=== PATIENT | female | born 1975 | race Caucasian/White ===

== ENCOUNTER 2017-10-16 11:22 | Inpatient (IN) | payer MEDICARE, OTHER ==
[~2017-10-16] VITALS: Ht 165.1 cm; Wt 155.6 kg
--- NOTE | 2017-10-16 11:42 | NUR ---
PT TO ER BED 12. SENT BY PMD FOR A RLE WOUND EVAL. PT STATES NON HEALING WOUND FOR 7 YEARS. GOWNED AND PLACED ON MONITOR. AWAITING MD LAYNE.
[2017-10-16] MEDS ORDERED: PIPERACILLIN /TAZOBACTAM 3.375 G in IV D5W 50 ML IV ONE (12:00)
[2017-10-16] MEDS ORDERED: VANCOMYCIN 1 GM in IV D5W 250 ML IV ONE (12:00)
[2017-10-16 12:13] LABS: BASOPHILS # (AUTO) 0.1 /CMM (0.0-0.2); BASOPHILS % (AUTO) 2.1 % (0.0-2.0); EOSINOPHILS % (AUTO) 3.5 % (0.0-6.0); HEMATOCRIT 36 % (33-45); HEMOGLOBIN 12.5 g/dL (11.5-14.8); LYMPHOCYTES # (AUTO) 1.2 /CMM (0.8-4.8); LYMPHOCYTES % (AUTO) 21.7 % (20.0-44.0); MEAN CORPUSCULAR HEMOGLOBIN 32 PG (26.0-33.0); MEAN CORPUSCULAR HGB CONC 35 g/dl (31.0-36.0); MEAN CORPUSCULAR VOLUME 92 fL (82-100); MONOCYTES # (AUTO) 0.5 /CMM (0.1-1.30); MONOCYTES % (AUTO) 8.6 % (2.0-12.0); NEUTROPHILS # (AUTO) 3.5 /CMM (1.8-8.9); NEUTROPHILS % (AUTO) 64.1 % (43.0-81.0); PLATELET COUNT (AUTO) 135 /CMM (150-450); RDW COEFFICIENT OF VARIATION 14.8 (11.5-15.0); RED BLOOD CELL COUNT(AUTO) 3.93 MIL/uL (4.0-5.2); WHITE BLOOD COUNT (AUTO) 5.5 K/uL (4.3-11.0)
[2017-10-16 12:23] LABS: CALCIUM, SERUM 8.6 mg/dL (8.5-10.1); CARBON DIOXIDE 29 mmol/L (21-32); CHLORIDE 107 mmol/L (98-107); CREATININE 0.8 mg/dL (0.6-1.3); GLUCOSE 82 mg/dL (74-106); POTASSIUM 3.6 mmol/L (3.5-5.1); SODIUM SERUM 139 mmol/L (136-145); UREA NITROGEN, BLOOD 14 mg/dL (7-18)
[2017-10-16 12:28] LABS: ALANINE AMINOTRANSFERASE 30 U/L (12-78); ALKALINE PHOSPHATASE 96 U/L (46-116); ASPARTATE AMINOTRANSFERASE 32 U/L (15-37); BILIRUBIN,DIRECT 0.2 mg/dL (0.0-0.2); BILIRUBIN,TOTAL 0.7 mg/dL (0.2-1.0); TOTAL PROTEIN, SERUM 7.5 g/dL (6.4-8.2)
[2017-10-16 12:29] LABS: INR 0.97 (0.85-1.15)
[2017-10-16 12:31] LABS: TROPONIN I < 0.017 ng/mL (0.00-0.056)
[2017-10-16] MEDS ORDERED: VANCOMYCIN 2 GM in IV D5W 500 ML IV ONE (13:00)
--- NOTE | 2017-10-16 13:00 | NUR ---
REPORT GIVEN TO TERRY. PT AWAITING TRANSFER TO FLOOR.
[2017-10-16 14:00] VITALS: BP 124/79
--- NOTE | 2017-10-16 14:20 | NUR ---
MS RN OPENING NOTES RECEIVED PATIENT IN STALE CONDITION. IN NO APPARENT DISTRESS. BEDSIDE RAILS ARE UPX2. BED IS LOCKED AND LOWERED. CALL LIGHT IS WITHIN REACH. IV LINE IS INTACT AND PATENT. WILL CONTINUE TO MONITOR.
[2017-10-16] MEDS ORDERED: Z GUARD REMEDY 2 OZ OINT TP PRN (14:30)
[2017-10-16] MEDS ORDERED: ZOLPIDEM TARTRATE 5 MG TABLET PO PRN (14:30)
[2017-10-16] MEDS ORDERED: ACETAMINOPHEN 325 MG TABLET PO PRN (14:30)
[2017-10-16] MEDS ORDERED: ONDANSETRON HCL/PF 4 MG/2 ML VIAL IVP PRN (14:30)
[2017-10-16] MEDS ORDERED: FEE PK DOSING 1 MIN EA MC ONE (14:52)
[2017-10-16] MEDS: HYDROCODONE/APAP 10/325MG 1 EA TABLET PO PRN ×2 (15:37→19:30)
[2017-10-16] MEDS: ENOXAPARIN SODIUM 40 MG/0.4 ML DISP.SYRIN SQ SCH (16:00)
[2017-10-16 16:13] VITALS: BP 149/93
--- NOTE | 2017-10-16 18:42 | NUR ---
MS RN CLOSING NOTES PATIENT IS RESTING IN BED IN NO APPARENT DISTRESS. BEDSIDE RAILS ARE UPX2. BED IS LOCKED AND LOWERED. CALL LIGHT IS WITHIN REACH. IV LINE IS INTACT AND PATENT. ALL NEEDS WERE MET. WILL CONTINUE TO MONITOR.
--- NOTE | 2017-10-16 19:40 | NUR ---
MS RN NOTE RECEIVED PATIENT FROM DAY SHIFT, PATIENT IS ALERT AND ORIENTEDX4, DENIES RESPIRATORY DISTRESS AND COMPLAINS OF RIGHT LOWER LEG PAIN DUE TO WOUND. NORCO 10-325MG PO GIVEN, WILL MONITOR FOR EFFECTIVENESS. IV ON RIGHT HAND 20 AND LEFT AC 20 ARE PATENT AND INTACT, FLUID IS RUNNING. SRX2, BED IN LOW POSITION, CALL LIGHT WITHIN REACH, WILL CONTINUE TO MONITOR PATIENT.
--- NOTE | 2017-10-16 20:30 | NUR ---
MS RN NOTE COUNTRY MANAGER IS DOING ARTERIAL DOPPLER ON BLE AND ECHOCARDIOGRAM AT BEDSIDE.
[2017-10-16 20:35] VITALS: BP 148/80
[2017-10-16] MEDS: VANCOMYCIN 1 GM in IV D5W 250 ML IV SCH (20:54)
[2017-10-17] MEDS: HYDROCODONE/APAP 10/325MG 1 EA TABLET PO PRN ×4 (00:10→19:09)
--- NOTE | 2017-10-17 01:30 | NUR ---
MS RN NOTE PATIENT STILL COMPLAINS OF SEVERE PAIN ON RLE 10 EVEN AFTER NORCO 10-325MG. PAGED ONCLORRI MONTANEZ REYES AND GOT AN ORDER OF MORPHINE 2MG IVP Q4H PRN. ORDERS PUT IN AND WILL CARRY OUT.
[2017-10-17] MEDS: MORPHINE SULFATE INJ 2 MG/ML DISP.SYRIN IV PRN ×4 (02:38→15:06)
--- NOTE | 2017-10-17 02:40 | NUR ---
MS RN NOTE PATIENT COMPLAINS OF PAIN ON LLE, MORPHINE 2MG IVP GIVEN. WILL MONITOR FOR EFFECTIVENESS.
[2017-10-17] MEDS: VANCOMYCIN 1 GM in IV D5W 250 ML IV SCH ×3 (04:55→21:06)
--- NOTE | 2017-10-17 06:35 | NUR ---
MS RN NOTE PATIENT COMPLAINS OF PAIN ON LLE, MORPHINE 2MG IVP GIVEN. WILL MONITOR FOR EFFECTIVENESS.
--- NOTE | 2017-10-17 06:47 | NUR ---
MS RN NOTE PATIENT IS SLEEPING IN BED, NO FACIAL GRIMACE, NO S/S OF RESPIRATORY DISTRESS PRESENT. ALL DUE MEDS GIVEN, MORNING CARE RENDERED. NO ACUTE EVENT NOTED THROUGHOUT THE SHIFT. WILL ENDORSE TO DAY SHIFT NURSE FOR COLLINS.
--- NOTE | 2017-10-17 07:15 | NUR ---
MS RN OPENING NOTE RECEIVED PATIENT IN BED, SLEEPING, EASILY AROUSED WITH VERBAL STIMULI. LETHARGIC, ORIENTED X2. ON ROOM AIR TOLERATING WELL. RESPIRATIONS EVEN AND UNLABORED. IN NO APPARENT DISTRESS OR DISCOMFORT AT THIS TIME. DENIES PAIN. PATIENT WITH DUMONT CATHETER DRAINING CLEAR YELLOW URINE. LEFT UPPER ARM IVC 22G. PATENT AND INTACT. WITH FLUIDS RUNNING AT 75ML/HR. OR TEAM BY THE BEDSIDE TO TAKE THE PATIENT FOR SURGERY. CONSENT SIGNED PLACED IN A CHART. WAS NPO SINCE MIDNIGHT. KEPT CLEAN AND COMFORTABLE, ALL NEEDS ATTENDED. SAFETY MEASURES IN PLACE, BED IN LOW LOCKED POSITION, SIDE RIALS UP X2, CALL LIGHT WITHIN EASY REACH. WILL CONTINUE TO MONITOR.
--- NOTE | 2017-10-17 07:15 | NUR ---
ms rn initial notes Received patient in bed, asleep, head of bed elevated, no SOB or distress noted. On room air and tolerated well. IV intact and patent with IVF. No facial grimace noted. Alert and oriented x 4, verbally responsive and able to make needs known. Call light with in patient reach, will continue to monitor accordingly.
[2017-10-17 08:00] VITALS: BP 137/83
[2017-10-17] MEDS: LORAZEPAM INJ 2 MG/ML VIAL IV PRN ×2 (11:37→18:02)
[2017-10-17 12:33] LABS: BASOPHILS % (AUTO) 0.5 % (0.0-2.0); HEMATOCRIT 37 % (33-45); HEMOGLOBIN 12.4 g/dL (11.5-14.8); LYMPHOCYTES # (AUTO) 1.1 /CMM (0.8-4.8); LYMPHOCYTES % (AUTO) 22.9 % (20.0-44.0); MEAN CORPUSCULAR HEMOGLOBIN 31 PG (26.0-33.0); MEAN CORPUSCULAR HGB CONC 33 g/dl (31.0-36.0); MEAN CORPUSCULAR VOLUME 93 fL (82-100); MONOCYTES # (AUTO) 0.4 /CMM (0.1-1.30); MONOCYTES % (AUTO) 7.4 % (2.0-12.0); NEUTROPHILS # (AUTO) 3.2 /CMM (1.8-8.9); NEUTROPHILS % (AUTO) 66.2 % (43.0-81.0); PLATELET COUNT (AUTO) 144 /CMM (150-450); RDW COEFFICIENT OF VARIATION 15.7 (11.5-15.0); RED BLOOD CELL COUNT(AUTO) 4.01 MIL/uL (4.0-5.2); WHITE BLOOD COUNT (AUTO) 4.8 K/uL (4.3-11.0)
[2017-10-17] MEDS ORDERED: KETOROLAC TROMETHAMINE 10 MG TABLET PO PRN (13:00)
[2017-10-17] MEDS ORDERED: diphenhydrAMINE HCL 50 MG CAPSULE PO PRN (13:00)
[2017-10-17] MEDS: GABAPENTIN 100 MG CAPSULE PO SCH ×2 (13:06→17:03)
[2017-10-17 13:16] LABS: ALBUMIN 3.1 g/dL (3.4-5.0); BILIRUBIN,TOTAL 0.8 mg/dL (0.2-1.0); CALCIUM, SERUM 8.7 mg/dL (8.5-10.1); CREATININE 0.8 mg/dL (0.6-1.3); MAGNESIUM 1.7 mg/dL (1.8-2.4); PHOSPHORUS 4.1 mg/dL (2.5-4.9); POTASSIUM 3.9 mmol/L (3.5-5.1); TOTAL PROTEIN, SERUM 7.7 g/dL (6.4-8.2)
[2017-10-17] MEDS ORDERED: FLUO-120 PO (13:36)
[2017-10-17] MEDS ORDERED: QUET25TA PO (13:36)
[2017-10-17] MEDS ORDERED: NYST500P PO (13:36)
[2017-10-17] MEDS ORDERED: ERGO500014 PO (13:36)
[2017-10-17] MEDS ORDERED: ASCO500T9 PO (13:36)
[2017-10-17] MEDS ORDERED: GABA-534 PO (13:36)
[2017-10-17] MEDS ORDERED: ZOLP10TA6 PO (13:36)
[2017-10-17] MEDS ORDERED: LORA2TAB PO (13:36)
[2017-10-17] MEDS ORDERED: FOLI1TAB16 PO (13:36)
[2017-10-17] MEDS ORDERED: RISP0.253 PO (13:36)
[2017-10-17] MEDS ORDERED: ESCI10TA PO (13:36)
[2017-10-17] MEDS ORDERED: MULT-15 PO (13:36)
[2017-10-17] MEDS ORDERED: ZINC220C8 PO (13:36)
[2017-10-17] MEDS ORDERED: CHOL100044 PO (13:36)
[2017-10-17] MEDS ORDERED: OXYB5TAB11 PO (13:36)
[2017-10-17] MEDS ORDERED: IBUP-1957 PO (13:36)
[2017-10-17] MEDS ORDERED: FERR325T23 PO (13:36)
[2017-10-17 13:40] LABS: THYROID STIMULATING HORMONE 1.59 uIU/mL (0.358-3.74)
[2017-10-17] MEDS: PIPERACILLIN /TAZOBACTAM 3.375 G in IV NS 0.9% 50 ML IV SCH ×2 (15:04→20:31)
--- NOTE | 2017-10-17 16:49 | NUR ---
ms rn notes Gregg Alvares CONFORMAL PAD FORMER came seen and examined the patient and ordered to d/c previous morphine order and increased to 4mg Q4hrs PRN. Patient is on isolation for mRSA nares. Mupirocin ordered. All orders carried out and noted.
[2017-10-17] MEDS: MORPHINE SULFATE INJ 4 MG/ML DISP.SYRIN IV PRN ×2 (17:03→22:14)
[2017-10-17] MEDS: LIDOCAINE 5% OINT 35.44 GM TUBE TP SCH (17:03)
[2017-10-17] MEDS: FLUOCINONIDE 0.05% CREAM 15 GM TUBE TP SCH (17:12)
[2017-10-17] MEDS: OXYBUTYNIN CHLORIDE ER 5 MG TAB PO SCH (17:38)
[2017-10-17] MEDS ORDERED: MAGNESIUM OXIDE 400 MG TABLET PO ONE (19:00)
--- NOTE | 2017-10-17 19:18 | NUR ---
ms rn closing notes All needs provided, attended, and anticipated. Patient is in stable condition. Endorsed to next shift RN to continue care. Call light with in patient reach.
[2017-10-17 20:00] VITALS: BP 163/97
--- NOTE | 2017-10-17 20:06 | NUR ---
MS RN NOTE RECEIVED PATIENT FROM DAY SHIFT, PATIENT IS ALERT AND ORIENTEDX4, DENIES RESPIRATORY DISTRESS AND COMPLAINS OF RIGHT LOWER LEG PAIN DUE TO WOUND. IV ON RIGHT HAND 20 PATENT AND INTACT, FLUID IS RUNNING. SRX2, BED IN LOW POSITION, CALL LIGHT WITHIN REACH, WILL CONTINUE TO MONITOR PATIENT.
[2017-10-17] MEDS: ENOXAPARIN SODIUM 40 MG/0.4 ML DISP.SYRIN SQ SCH (21:06)
[2017-10-17] MEDS: HYDROGEL DRESSING 90 GM TUBE TP SCH (21:08)
[2017-10-17] MEDS: MUPIROCIN OINT 2% 22 GM TUBE SCH (21:09)
--- NOTE | 2017-10-17 22:22 | NUR ---
MS RN NOTE PATIENT COMPLAINS OF SEVERE PAIN ON HER BLE 12/07, MORPHINE 4MG IVP GIVEN. WILL MONITOR EFFECTIVENESS.
[2017-10-18] MEDS: LORAZEPAM INJ 2 MG/ML VIAL IV PRN ×4 (00:03→19:52)
[2017-10-18] MEDS: HYDROCODONE/APAP 10/325MG 1 EA TABLET PO PRN ×5 (02:07→23:18)
[2017-10-18] MEDS: PIPERACILLIN /TAZOBACTAM 3.375 G in IV NS 0.9% 50 ML IV SCH ×4 (02:07→19:52)
[2017-10-18] MEDS: MORPHINE SULFATE INJ 4 MG/ML DISP.SYRIN IV PRN ×5 (03:57→21:28)
[2017-10-18] MEDS: VANCOMYCIN 1 GM in IV D5W 250 ML IV SCH ×3 (04:58→21:08)
--- NOTE | 2017-10-18 07:20 | NUR ---
ms rn initial notes Received patient in bed, asleep, head of bed elevated, no SOB or distress noted, on room air and tolerated well. Alert and oriented x 3 verbally responsive and able to make needs known. Iv intact and patent HL only. Call light with in patient reach, will continue to monitor accordingly.
[2017-10-18 08:00] VITALS: BP 150/96
[2017-10-18] MEDS: OXYBUTYNIN CHLORIDE ER 5 MG TAB PO SCH (08:09)
[2017-10-18] MEDS: ASCORBIC ACID 500 MG TABLET PO SCH (08:09)
[2017-10-18] MEDS: ZINC SULFATE 220 MG CAPSULE PO SCH (08:09)
[2017-10-18] MEDS: HYDROGEL DRESSING 90 GM TUBE TP SCH ×2 (08:10→21:09)
[2017-10-18] MEDS: GABAPENTIN 100 MG CAPSULE PO SCH ×3 (08:10→17:20)
[2017-10-18] MEDS: FLUCONAZOLE (100 MG) 100 MG TABLET PO SCH (08:10)
[2017-10-18] MEDS: LIDOCAINE 5% OINT 35.44 GM TUBE TP SCH ×2 (08:11→17:21)
[2017-10-18] MEDS: DAKINS QUARTER STRENGTH (0.125%) 480 ML BOTTLE TOP SCH (08:11)
[2017-10-18] MEDS: MUPIROCIN OINT 2% 22 GM TUBE SCH ×2 (08:11→21:09)
[2017-10-18] MEDS: FLUOCINONIDE 0.05% CREAM 15 GM TUBE TP SCH ×2 (08:12→17:21)
[2017-10-18 09:22] LABS: CALCIUM, SERUM 8.7 mg/dL (8.5-10.1); CREATININE 0.8 mg/dL (0.6-1.3)
[2017-10-18 16:00] VITALS: BP 147/84
[2017-10-18] MEDS: LACTOBACILLUS RHAMNOSUS GG 1 EACH CAP.SPRINK PO SCH (17:20)
--- NOTE | 2017-10-18 19:06 | NUR ---
ms rn closing notes All needs provided, attended, and anticipated. Patient in stable condition at this time. Endorsed to next shift RN to continue care. Call light with in reach.
--- NOTE | 2017-10-18 19:30 | NUR ---
MS RN NOTE RECEIVED PATIENT FROM DAY SHIFT, PATIENT IS ALERT AND ORIENTEDX4, DENIES RESPIRATORY DISTRESS AND COMPLAINS OF RIGHT LOWER LEG PAIN DUE TO WOUND. IV ON LEFT FA IS PATENT AND INTACT, FLUID IS RUNNING. SRX2, BED IN LOW POSITION, CALL LIGHT WITHIN REACH, WILL CONTINUE TO MONITOR PATIENT.
[2017-10-18 20:00] VITALS: BP 140/94
[2017-10-18] MEDS: ENOXAPARIN SODIUM 40 MG/0.4 ML DISP.SYRIN SQ SCH (21:09)
[2017-10-19] MEDS: MORPHINE SULFATE INJ 4 MG/ML DISP.SYRIN IV PRN ×6 (01:24→22:56)
[2017-10-19] MEDS: PIPERACILLIN /TAZOBACTAM 3.375 G in IV NS 0.9% 50 ML IV SCH ×4 (01:59→20:12)
[2017-10-19] MEDS: LORAZEPAM INJ 2 MG/ML VIAL IV PRN ×4 (02:09→20:39)
[2017-10-19] MEDS: HYDROCODONE/APAP 10/325MG 1 EA TABLET PO PRN ×5 (03:26→21:07)
--- NOTE | 2017-10-19 04:45 | NUR ---
MS RN NOTE PATIENT REFUSED TO TAKE PICTURES ON HER LEG SINCE IT HURTS AND DRESSING WAS CHANGED YESTERDAY, DOESN'T WANT TO TOUCH IT. PT WILL HAVE DEBRIDEMENT IN AM.
[2017-10-19] MEDS: VANCOMYCIN 1 GM in IV D5W 250 ML IV SCH ×3 (04:52→21:02)
--- NOTE | 2017-10-19 06:23 | NUR ---
MS RN NOTE PATIENT IS RESTING IN BED COMFORTABLY, NO ACUTE EVENT NOTED THROUGHOUT THE SHIFT. ALL DUE MEDS GIVEN, MORNING CARE RENDERED. IV ON LEFT FA IS PATENT AND INTACT, SL. WILL ENDORSE TO DAY SHIFT NURSE FOR COLLINS.
[2017-10-19 07:58] LABS: BASOPHILS # (AUTO) 0.1 /CMM (0.0-0.2); BASOPHILS % (AUTO) 1.1 % (0.0-2.0); EOSINOPHILS % (AUTO) 3.1 % (0.0-6.0); HEMATOCRIT 38 % (33-45); HEMOGLOBIN 12.9 g/dL (11.5-14.8); LYMPHOCYTES # (AUTO) 1.3 /CMM (0.8-4.8); LYMPHOCYTES % (AUTO) 27.2 % (20.0-44.0); MEAN CORPUSCULAR HEMOGLOBIN 32 PG (26.0-33.0); MEAN CORPUSCULAR HGB CONC 34 g/dl (31.0-36.0); MEAN CORPUSCULAR VOLUME 94 fL (82-100); MONOCYTES # (AUTO) 0.5 /CMM (0.1-1.30); MONOCYTES % (AUTO) 10.9 % (2.0-12.0); NEUTROPHILS # (AUTO) 2.8 /CMM (1.8-8.9); NEUTROPHILS % (AUTO) 57.7 % (43.0-81.0); PLATELET COUNT (AUTO) 121 /CMM (150-450); RDW COEFFICIENT OF VARIATION 15.7 (11.5-15.0); RED BLOOD CELL COUNT(AUTO) 4.09 MIL/uL (4.0-5.2); WHITE BLOOD COUNT (AUTO) 4.8 K/uL (4.3-11.0)
[2017-10-19] MEDS: MUPIROCIN OINT 2% 22 GM TUBE SCH ×2 (08:10→20:46)
[2017-10-19 08:14] LABS: CALCIUM, SERUM 8.7 mg/dL (8.5-10.1); CREATININE 0.9 mg/dL (0.6-1.3); MAGNESIUM 1.8 mg/dL (1.8-2.4); POTASSIUM 3.8 mmol/L (3.5-5.1)
[2017-10-19] MEDS: OXYBUTYNIN CHLORIDE ER 5 MG TAB PO SCH (08:25)
[2017-10-19] MEDS: LACTOBACILLUS RHAMNOSUS GG 1 EACH CAP.SPRINK PO SCH ×2 (08:25→17:01)
[2017-10-19] MEDS: FLUCONAZOLE (100 MG) 100 MG TABLET PO SCH (08:25)
[2017-10-19] MEDS: GABAPENTIN 100 MG CAPSULE PO SCH ×3 (08:25→17:01)
--- NOTE | 2017-10-19 08:25 | NUR ---
MS RN NOTES PATIENT IN BED, A/O X4 APPEARS ANXIOUS. BREATHING ON ROOM AIR WITH NO SOB. RIGHT LEG WOUND DRESSING INTACT. AWAITING FOR WOUND DEBRIDEMENT PER NIGHT RN REPORT. MAINTAINED CONTACT ISOLATION MRSA NARES. CALL LIGHT WITHIN REACH. WILL CONT TO MONITOR.
[2017-10-19] MEDS: ZINC SULFATE 220 MG CAPSULE PO SCH (08:26)
[2017-10-19] MEDS: ASCORBIC ACID 500 MG TABLET PO SCH (08:26)
[2017-10-19 09:05] VITALS: BP 147/89
[2017-10-19] MEDS: DAKINS QUARTER STRENGTH (0.125%) 480 ML BOTTLE TOP SCH (09:08)
[2017-10-19] MEDS: LIDOCAINE 5% OINT 35.44 GM TUBE TP SCH ×2 (09:10→17:05)
[2017-10-19] MEDS: HYDROGEL DRESSING 90 GM TUBE TP SCH ×2 (09:11→20:47)
[2017-10-19] MEDS: FLUOCINONIDE 0.05% CREAM 15 GM TUBE TP SCH ×2 (09:11→17:05)
[2017-10-19] MEDS: IV NS 0.9% 1,000 ML IV PRN ×2 (16:48→22:56)
[2017-10-19 16:53] VITALS: BP 134/85
[2017-10-19] MEDS: NYSTATIN TOP POWDER 15 GM BOTTLE TP SCH (17:02)
--- NOTE | 2017-10-19 18:50 | NUR ---
MS RN CLOSING NOTES PATIENT IN BED, DINNER SERVED WITH GOOD APPETITE. MAINTAINED ON CONTACT ISOLATION MRSA NARES. WOUND DEBRIDEMENT RIGHT LEG TODAY BY DR. OLIVA, CONT WOUND TREATMENT PER MD. RIGHT LEG PAIN MANAGED BY PRN NORCO AND MORPHINE WITH RELIEF. STARTED ON NYSTATIN POWDER FOR ABDOMINAL, BREAST FOLDS IRRITATION AND REDNESS. DC PLANNING SNF PER MD. WILL ENDORSE TO ONCOMING RN.
--- NOTE | 2017-10-19 19:30 | NUR ---
MS2/RN RECEIVE PATIENT SLEEPING, AROUSABLE, APPEAR COMFORTABLE, NO SIGNS OF DISTRESS NOTED, CALL LIGHT IN REACH. WILL MONITOR.
[2017-10-19 20:00] VITALS: BP 114/68
[2017-10-19] MEDS: ENOXAPARIN SODIUM 40 MG/0.4 ML DISP.SYRIN SQ SCH (20:40)
[2017-10-20] MEDS: HYDROCODONE/APAP 10/325MG 1 EA TABLET PO PRN ×4 (01:01→17:38)
[2017-10-20] MEDS: PIPERACILLIN /TAZOBACTAM 3.375 G in IV NS 0.9% 50 ML IV SCH ×4 (01:57→21:45)
[2017-10-20] MEDS: LORAZEPAM INJ 2 MG/ML VIAL IV PRN ×4 (02:43→21:58)
[2017-10-20] MEDS: MORPHINE SULFATE INJ 4 MG/ML DISP.SYRIN IV PRN ×5 (03:47→22:48)
[2017-10-20] MEDS: VANCOMYCIN 1 GM in IV D5W 250 ML IV SCH ×2 (05:07→13:00)
--- NOTE | 2017-10-20 06:07 | NUR ---
MS/RN PATIENT APPEAR SLEEPING AT THIS TIME, APPEAR COMFORTABLE, NO SIGNS OF DISTRESS NOTED, ALL NEEDS ATTENDED AT THIS TIME. WILL CONTINUE TO MONITOR.
[2017-10-20] MEDS: MUPIROCIN OINT 2% 22 GM TUBE SCH ×2 (07:56→22:09)
[2017-10-20 08:00] VITALS: BP 140/81
[2017-10-20] MEDS: OXYBUTYNIN CHLORIDE ER 5 MG TAB PO SCH (08:01)
[2017-10-20] MEDS: LACTOBACILLUS RHAMNOSUS GG 1 EACH CAP.SPRINK PO SCH ×2 (08:01→17:32)
[2017-10-20] MEDS: ZINC SULFATE 220 MG CAPSULE PO SCH (08:01)
[2017-10-20] MEDS: FLUCONAZOLE (100 MG) 100 MG TABLET PO SCH (08:01)
[2017-10-20] MEDS: ASCORBIC ACID 500 MG TABLET PO SCH (08:01)
[2017-10-20] MEDS: GABAPENTIN 100 MG CAPSULE PO SCH ×3 (08:01→17:32)
[2017-10-20 08:06] LABS: CALCIUM, SERUM 8.8 mg/dL (8.5-10.1); CREATININE 0.8 mg/dL (0.6-1.3); POTASSIUM 4.3 mmol/L (3.5-5.1)
--- NOTE | 2017-10-20 08:42 | NUR ---
WOUND CARE CONSULT WOUND CARE RECEIVED CONSULT FOR ABDOMINAL FOLDS, BREAST FOLD REDNESS. WOUND CARE WILL DEFER TO PLASTIC SURGICAL TEAM WHO ARE CURRENTLY FOLLOWING. ALSO PODIATRY IS ALSO FOLLOWING. PATIENT WITH MAY AT 19, WILL SEE PRN.
--- NOTE | 2017-10-20 09:10 | NUR ---
MS RN NOTES PATIENT IN BED, A/O X4 APPEARS ANXIOUS. BREATHING ON ROOM AIR WITH NO SOB. IV ATIVAN PRN GIVEN FOR ANXIETY, WILL REASSESS. RIGHT LEG WOUND DRESSING INTACT. MAINTAINED CONTACT ISOLATION MRSA NARES. CALL LIGHT WITHIN REACH. WILL CONT TO MONITOR.
[2017-10-20] MEDS: NYSTATIN TOP POWDER 15 GM BOTTLE TP SCH ×2 (09:19→17:34)
[2017-10-20] MEDS: DAKINS QUARTER STRENGTH (0.125%) 480 ML BOTTLE TOP SCH (10:45)
[2017-10-20] MEDS: HYDROGEL DRESSING 90 GM TUBE TP SCH ×2 (10:46→22:08)
[2017-10-20] MEDS: LIDOCAINE 5% OINT 35.44 GM TUBE TP SCH ×2 (10:48→17:35)
[2017-10-20] MEDS: FLUOCINONIDE 0.05% CREAM 15 GM TUBE TP SCH ×2 (10:49→17:35)
--- NOTE | 2017-10-20 13:47 | NUR ---
VANCOMYCIN TROUGH ELEVATED 21. INFORMED PHARMACY, DOSE HELD.
[2017-10-20 16:00] VITALS: BP 133/88
[2017-10-20] MEDS: VANCOMYCIN 1 GM in IV NS 0.9% 250 ML IV SCH (18:48)
--- NOTE | 2017-10-20 19:30 | NUR ---
MS RN CLOSING NOTES PATIENT IN BED, A/O X3. MAINTAINED ON CONTACT ISOLATION MRSA NARES. RLE WOUND DRESSING CHANGED TODAY. EPISODE OF INFILTRATED IVC TODAY, ATTEMPTED TO RE INSERT BY 3 RN BUT UNSUCCESSFUL, WAS ABLE TO INSERT IVC BUT SMALL GAUZE 24. PATIENT IS CURRENTLY ON IV VANCOMYCIN AND ZOSYN THERAPY FOR RLE CELLULITIS, INFORMED CARLOS GAMEZ/FORENSIC ANALYST. FOR MIDLINE INSERTION, PATIENT TO BE DISCHARGED TO SNF WITH IV ANTIBIOTIC TREATMENT. CM INFORMED SPOKE TO MICAELA. ENDORSED TO ONCOMING RN.
[2017-10-20 20:00] VITALS: BP 135/87
--- NOTE | 2017-10-20 20:00 | NUR ---
MS2/RN RECEIVE PATIENT AWAKE, ALERT, ORIENTED, COMFORTABLE, NO SIGNS OF DISTRESS NOTED, CALL LIGHT IN REACH. WILL MONITOR. UNABLE TO ADMINISTER ZOSYN AT THIS TIME, VANCOMYCIN STILL INFUSING AT SLOW RATE TO A PERIPHERAL IV G 24.
[2017-10-20] MEDS: ENOXAPARIN SODIUM 40 MG/0.4 ML DISP.SYRIN SQ SCH (21:58)
--- NOTE | 2017-10-20 23:03 | NUR ---
MS2/RN MIDLINE INSERTION DONE, G 20.
[2017-10-21] MEDS: HYDROCODONE/APAP 10/325MG 1 EA TABLET PO PRN ×3 (00:22→16:49)
[2017-10-21] MEDS: MORPHINE SULFATE INJ 4 MG/ML DISP.SYRIN IV PRN ×3 (02:47→12:35)
[2017-10-21] MEDS: PIPERACILLIN /TAZOBACTAM 3.375 G in IV NS 0.9% 50 ML IV SCH ×3 (02:47→14:41)
[2017-10-21] MEDS: LORAZEPAM INJ 2 MG/ML VIAL IV PRN ×2 (04:09→15:01)
--- NOTE | 2017-10-21 04:55 | NUR ---
MS2/RN TOOK PICTURES OF THE REDNESS IN THE ABDOMINAL FOLD AND BILATERAL GROIN, IN PREPARATION FOR THE DISCHARGE TODAY. REFUSED WOUND DRESSING.
[2017-10-21] MEDS: VANCOMYCIN 1 GM in IV NS 0.9% 250 ML IV SCH ×2 (05:00→16:49)
--- NOTE | 2017-10-21 06:18 | NUR ---
MS2/RN PATIENT IS SLEEPING AT THIS TIME, EASILY AROUSABLE,APPEAR COMFORTABLE, NO SIGNS OF DISTRESS NOTED, CALL LIGHT IN REACH, ALL NEEDS ATTENDED AT THIS TIME. WILL CONTINUE TO MONITOR.
[2017-10-21 08:00] VITALS: BP 157/100
--- NOTE | 2017-10-21 08:00 | NUR ---
MS RN AM NOTES PATIENT IN BED, BREAKFAST SERVED WITH GOOD APPETITE. MAINTAINED ON CONTACT ISOLATION MRSA NARES. WOUND DEBRIDEMENT RIGHT LEG DONE BY DR. OLIVA ON 10/19/17, CONT WOUND TREATMENT ORDERED. RIGHT LEG PAIN MANAGED BY PRN NORCO AND MORPHINE WITH EFFECTIVE RELIEF. STARTED ON NYSTATIN POWDER FOR ABDOMINAL, BREAST FOLDS IRRITATION AND REDNESS. DC PLANNING TO SNF PER .
[2017-10-21 08:04] LABS: CALCIUM, SERUM 8.9 mg/dL (8.5-10.1); CREATININE 0.9 mg/dL (0.6-1.3); POTASSIUM 3.9 mmol/L (3.5-5.1)
[2017-10-21] MEDS: LACTOBACILLUS RHAMNOSUS GG 1 EACH CAP.SPRINK PO SCH ×2 (08:13→16:49)
[2017-10-21] MEDS: ZINC SULFATE 220 MG CAPSULE PO SCH (08:13)
[2017-10-21] MEDS: ASCORBIC ACID 500 MG TABLET PO SCH (08:13)
[2017-10-21] MEDS: GABAPENTIN 100 MG CAPSULE PO SCH ×3 (08:13→16:49)
[2017-10-21] MEDS: OXYBUTYNIN CHLORIDE ER 5 MG TAB PO SCH (08:14)
[2017-10-21] MEDS: FLUCONAZOLE (100 MG) 100 MG TABLET PO SCH (08:14)
[2017-10-21] MEDS: MUPIROCIN OINT 2% 22 GM TUBE SCH (08:25)
[2017-10-21] MEDS: HYDROGEL DRESSING 90 GM TUBE TP SCH (08:25)
[2017-10-21] MEDS: LIDOCAINE 5% OINT 35.44 GM TUBE TP SCH ×2 (08:26→16:49)
[2017-10-21] MEDS: NYSTATIN TOP POWDER 15 GM BOTTLE TP SCH ×2 (08:26→16:50)
[2017-10-21] MEDS: FLUOCINONIDE 0.05% CREAM 15 GM TUBE TP SCH ×2 (08:27→16:50)
[2017-10-21] MEDS: DAKINS QUARTER STRENGTH (0.125%) 480 ML BOTTLE TOP SCH (08:28)
[2017-10-21] MEDS: IV NS 0.9% 1,000 ML IV PRN (11:28)
--- NOTE | 2017-10-21 13:03 | NUR ---
CLARIFIED VANCO IV FOR RLE NON HEALING WOUND WITH PHARMACIST SINCE VANCO TROUGH IS 21.PHARMACIST SAYS TO HOLD VANCO IV FOR NOW.
--- NOTE | 2017-10-21 15:00 | NUR ---
SPOKE TO AVILA,PHARMACIST WHO STATED THAT VANCO TROUGH NEEDS TO BE CHECKED PRIOR TO ADMINISTERING THE DOSE.CARRIED OUT.
[2017-10-21 16:00] VITALS: BP 160/84
--- NOTE | 2017-10-21 18:15 | NUR ---
DISCHARGED PT TO [facility] WITH STABLE V/S.WITH BOTH LT HAND HEPLOCK G 24 AND BEL MIDLINE GAUGE 20 INTACT WITH NO S/S OF INFILTRATION NOTED FOR CONTINUATION OF ATB IV THERAPY OF VANCO AND ZOSYN IV FOR 14 DAYS.F/U INSTRUCTIONS GIVEN TO SEE DR SALEH IN ONE WEEK.PT DENIES ANY PAIN OR DISTRESS.REFUSED PHOTOS TO BE TAKEN ON SKIN ISSUES.REPORT CALLED IN TO KENA OF [facility].
== END 2017-10-21 18:15 | DRG 982 ==
LOC: ER 11:24 → MEDSG2 13:03
PROVIDERS: ADMIT Nurse Practitioner Acute Care; ATTEND Nurse Practitioner Acute Care
PROC: 0KBS0ZZ Excision of Right Lower Leg Muscle, Open Approach (ICD-10-PCS; principal; 2017-10-19)
PROC: 05HY33Z Insertion of Infusion Device into Upper Vein, Percutaneous Approach (ICD-10-PCS; 2017-10-20)
DX: I87.2 Venous insufficiency (chronic) (peripheral) (principal); L03.115 Cellulitis of right lower limb; L97.919 Non-pressure chronic ulcer of unspecified part of right lower leg with unspecified severity; Z68.43 Body mass index [BMI] 50.0-59.9, adult; E44.1 Mild protein-calorie malnutrition; I87.8 Other specified disorders of veins; D69.6 Thrombocytopenia, unspecified; E66.01 Morbid (severe) obesity due to excess calories; F32.9 Major depressive disorder, single episode, unspecified; B35.1 Tinea unguium; B35.3 Tinea pedis; M19.90 Unspecified osteoarthritis, unspecified site; D64.9 Anemia, unspecified; F41.9 Anxiety disorder, unspecified; F17.210 Nicotine dependence, cigarettes, uncomplicated; E88.09 Other disorders of plasma-protein metabolism, not elsewhere classified; J45.909 Unspecified asthma, uncomplicated; Z98.84 Bariatric surgery status; I73.9 Peripheral vascular disease, unspecified; L30.4 Erythema intertrigo; Z22.322 Carrier or suspected carrier of Methicillin resistant Staphylococcus aureus; B95.62 Methicillin resistant Staphylococcus aureus infection as the cause of diseases classified elsewhere
CPT/HCPCS: 36415; 71045-TC; 80048-TC; 80053-TC; 80076-TC; 80202-TC; 83605-TC; 83735-TC; 84100-TC; 84443-TC; 84484-TC; 84703-TC; 85025-TC; 85652-TC; 85730-TC; 87040-TC; 87070-TC; 87081-TC; 93307-TC; A4216; A4217; A4606; A6248; A6253; A6402; A6403; C1751; J1650; J2060; J2270; J2543; J3370; J7030; J7050; J7060; Z7610

== ENCOUNTER 2017-11-08 12:09 | Inpatient (IN) | payer MEDICARE, OTHER ==
[~2017-11-08] VITALS: Ht 167.6 cm; Wt 155.6 kg
[~2017-11-08 12:09] MED LIST: ASCO500T9 PO; CHOL100044 PO; ERGO500014 PO; ESCI10TA PO; FERR325T23 PO; FLUO-120 PO; FOLI1TAB16 PO; GABA-534 PO; IBUP-1957 PO; LORA2TAB PO; MULT-15 PO; NYST500P PO; OXYB5TAB11 PO; QUET25TA PO; RISP0.253 PO; ZINC220C8 PO; ZOLP10TA6 PO
[2017-11-08] MEDS ORDERED: HYDROCODONE/APAP 10/325MG 1 EA TABLET ONE (12:21)
--- NOTE | 2017-11-08 12:27 | NUR ---
ATTEMPTED TO REACH NURSING COMMUNITY ASSISTANT FOR M/S BED. NO RESPONSE.
[2017-11-08] MEDS ORDERED: LORAZEPAM 1 MG TABLET PO ONE (12:30)
[2017-11-08] MEDS ORDERED: HYDROCODONE/APAP 10/325MG 1 EA TABLET PO ONE (12:30)
[2017-11-08 12:34] LABS: BASOPHILS % (AUTO) 0.7 % (0.0-2.0); EOSINOPHILS % (AUTO) 2.9 % (0.0-6.0); HEMATOCRIT 40 % (33-45); HEMOGLOBIN 13.5 g/dL (11.5-14.8); LYMPHOCYTES # (AUTO) 1.5 /CMM (0.8-4.8); LYMPHOCYTES % (AUTO) 33.4 % (20.0-44.0); MEAN CORPUSCULAR HEMOGLOBIN 32 PG (26.0-33.0); MEAN CORPUSCULAR HGB CONC 34 g/dl (31.0-36.0); MEAN CORPUSCULAR VOLUME 93 fL (82-100); MONOCYTES # (AUTO) 0.4 /CMM (0.1-1.30); NEUTROPHILS # (AUTO) 2.4 /CMM (1.8-8.9); PLATELET COUNT (AUTO) 139 /CMM (150-450); RDW COEFFICIENT OF VARIATION 14.3 (11.5-15.0); RED BLOOD CELL COUNT(AUTO) 4.23 MIL/uL (4.0-5.2); WHITE BLOOD COUNT (AUTO) 4.5 K/uL (4.3-11.0)
--- NOTE | 2017-11-08 12:38 | NUR ---
CALLED NURSING ETHERNET NETWORK ARCHITECT FOR M/S BED
[2017-11-08 12:53] LABS: INR 1.02 (0.87-1.13)
[2017-11-08 12:55] LABS: CALCIUM, SERUM 8.8 mg/dL (8.5-10.1); CREATININE 0.8 mg/dL (0.6-1.3); POTASSIUM 4.1 mmol/L (3.5-5.1)
[2017-11-08] MEDS ORDERED: LORAZEPAM 1 MG TABLET ONE (12:59)
[2017-11-08 13:02] LABS: ALBUMIN 3.3 g/dL (3.4-5.0); BILIRUBIN,DIRECT 0.2 mg/dL (0.0-0.2); BILIRUBIN,TOTAL 0.6 mg/dL (0.2-1.0); TOTAL PROTEIN, SERUM 7.6 g/dL (6.4-8.2)
--- NOTE | 2017-11-08 13:05 | NUR ---
CALLED NURSING WEBSPHERE COMMERCE DEVELOPER FOR STATUS ON M/S BED. SHE SAID SHE WILL CALL BACK.
--- NOTE | 2017-11-08 13:10 | NUR ---
[facility] CALLED FOR PT.
--- NOTE | 2017-11-08 13:16 | NUR ---
PT ASSIGNED M/S 201
--- NOTE | 2017-11-08 13:21 | NUR ---
REPORT GIVEN TO LAITH HANNA FOR MS-201.
--- NOTE | 2017-11-08 13:24 | NUR ---
PAGED PAMELA SCHAFER DNP FOR PANEL ADMISSION
[2017-11-08 14:30] VITALS: BP 135/78
--- NOTE | 2017-11-08 14:30 | NUR ---
MS fisheries inspector 42 years old female brought in via gurney from ED. Transferred patient to bed, ambulate with one person assist/walker. Appears anxious, denies shortness of breath. Presence of midline in BEL upon initial assessment. Skin check done, Right lower leg (inner) wound, changed dressing. Orientation to room, unit, staff. Place call light within reach. Isolation precaution initiated Hx of MRSA wound, Nares. Notified admitting MD.
[2017-11-08 16:00] VITALS: BP 154/80
[2017-11-08] MEDS ORDERED: ACETAMINOPHEN 325 MG TABLET PO PRN (16:00)
[2017-11-08] MEDS ORDERED: LORAZEPAM 1 MG TABLET PO PRN (16:00)
[2017-11-08] MEDS ORDERED: ONDANSETRON HCL/PF 4 MG/2 ML VIAL IVP PRN (16:00)
[2017-11-08] MEDS ORDERED: Z GUARD REMEDY 2 OZ OINT TP PRN (16:00)
[2017-11-08] MEDS: QUETIAPINE FUMARATE 25 MG TABLET PO SCH (16:28)
[2017-11-08] MEDS: OXYBUTYNIN CHLORIDE 5 MG TABLET PO SCH (16:28)
[2017-11-08] MEDS: FERROUS SULFATE (325 MG) 325 MG/TAB TABLET PO SCH (16:28)
[2017-11-08] MEDS: risperiDONE 0.25 MG TABLET PO SCH (16:29)
[2017-11-08] MEDS: HYDROCODONE/APAP 10/325MG 1 EA TABLET PO PRN (16:44)
[2017-11-08] MEDS ORDERED: IBUPROFEN 400 MG TABLET PO SCH (17:00)
[2017-11-08] MEDS ORDERED: ASCORBIC ACID 500 MG TABLET PO SCH (17:00)
[2017-11-08] MEDS: NYSTATIN TOP POWDER 15 GM BOTTLE TP SCH (17:19)
--- NOTE | 2017-11-08 18:25 | NUR ---
MS RN closing notes Patient in bed, A/O x4. Dinner served with good appetite. Patient will be NPO midnight, will start IVF as ordered. For RLE debridement and skin graft application tomorrow by Dr. Von Amaral MD spoke to patient, verbalized understanding. Will endorse to oncoming RN.
--- NOTE | 2017-11-08 19:30 | NUR ---
MS RN NOTES RECEIVED ON SLEEPING,AROUSABLE TO VERBAL STIMULI,BREATHING REGULAR,NOT IN ANY FORM OF DISTRESS.WITH BEL MIDLINE FOR MEDS,INSTRUCTED NPO POST MIDNIGHT FOR RLE DEBRIDEMENT.TO START IVF AT MIDNIGHT.DRESSING TO RLE INTACT AND DRY.CALL LIGHT IN REACH,NEEDS ANTICIPATED.
[2017-11-08 20:00] VITALS: BP 132/77
[2017-11-08] MEDS: GABAPENTIN 300 MG CAPSULE PO SCH (22:00)
--- NOTE | 2017-11-08 23:30 | NUR ---
MS RN NOTES RIGHT UPPER ARM MIDLINE NOT FLUSHING,NEW SALINE LOCK PLACE ON LEFT HAND #22.STARTED NS AT 75ML/HR RATE.
[2017-11-09] MEDS ORDERED: IV NS 0.9% 1,000 ML IV PRN
[2017-11-09] MEDS: HYDROCODONE/APAP 10/325MG 1 EA TABLET PO PRN ×2 (01:09→12:32)
[2017-11-09] MEDS: QUETIAPINE FUMARATE 25 MG TABLET PO SCH ×2 (05:35→17:38)
[2017-11-09] MEDS: risperiDONE 0.25 MG TABLET PO SCH ×2 (05:35→17:39)
--- NOTE | 2017-11-09 06:59 | NUR ---
MS RN NOTES FAIRLY RESTED,SLEPT WELL,PAIN MANAGEMENT EFFECTIVE,FOR WOUND DEBRIDEMENT AT 0730.ENDORSED TO KERRI HANNA FOR COLLINS.
[2017-11-09 07:03] LABS: BASOPHILS % (AUTO) 0.9 % (0.0-2.0); EOSINOPHILS % (AUTO) 4.1 % (0.0-6.0); HEMATOCRIT 40 % (33-45); HEMOGLOBIN 13.3 g/dL (11.5-14.8); LYMPHOCYTES # (AUTO) 1.3 /CMM (0.8-4.8); LYMPHOCYTES % (AUTO) 36.2 % (20.0-44.0); MEAN CORPUSCULAR HEMOGLOBIN 31 PG (26.0-33.0); MEAN CORPUSCULAR HGB CONC 33 g/dl (31.0-36.0); MEAN CORPUSCULAR VOLUME 94 fL (82-100); MONOCYTES # (AUTO) 0.3 /CMM (0.1-1.30); MONOCYTES % (AUTO) 9.4 % (2.0-12.0); NEUTROPHILS # (AUTO) 1.8 /CMM (1.8-8.9); NEUTROPHILS % (AUTO) 49.4 % (43.0-81.0); PLATELET COUNT (AUTO) 116 /CMM (150-450); RDW COEFFICIENT OF VARIATION 14.4 (11.5-15.0); RED BLOOD CELL COUNT(AUTO) 4.28 MIL/uL (4.0-5.2); WHITE BLOOD COUNT (AUTO) 3.7 K/uL (4.3-11.0)
[2017-11-09] MEDS ORDERED: ANESTHESIA TRAY IN PYXIS 1 EA TRAY MC ONE (07:12)
[2017-11-09] MEDS ORDERED: LIDOCAINE HCL/PF 1% 30 ML SDV ONE (07:13)
[2017-11-09] MEDS ORDERED: MINERAL OIL 10 ML VIAL MC ONE (07:13)
[2017-11-09] MEDS ORDERED: LIDOCAINE 1%-EPI 1:100,000 20 ML VIAL ONE (07:14)
[2017-11-09] MEDS ORDERED: MIDAZOLAM HCL 2 MG/2ML VIAL ONE (07:23)
[2017-11-09] MEDS ORDERED: FENTANYL PF 100MCG/2ML AMPUL ONE ×2 (07:23→08:33)
[2017-11-09 07:24] LABS: THYROID STIMULATING HORMONE 2.361 uIU/mL (0.358-3.74)
[2017-11-09] MEDS ORDERED: SUCCINYLCHOLINE CHLORIDE 20 MG/ML VIAL ONE (07:24)
[2017-11-09 07:28] LABS: ALBUMIN 2.9 g/dL (3.4-5.0); BILIRUBIN,TOTAL 0.7 mg/dL (0.2-1.0); CALCIUM, SERUM 8.5 mg/dL (8.5-10.1); CREATININE 0.7 mg/dL (0.6-1.3); MAGNESIUM 1.7 mg/dL (1.8-2.4); POTASSIUM 3.8 mmol/L (3.5-5.1)
--- NOTE | 2017-11-09 07:31 | NUR ---
MS/RN Patient received Patient received from material handler 2nd shift, taken to operating room. Medical record with patient.
[2017-11-09 07:44] VITALS: BP 142/75
[2017-11-09] MEDS ORDERED: ALBUTEROL 17GM INHALER ONE (07:57)
[2017-11-09 08:00] VITALS: BP 142/75
[2017-11-09] MEDS ORDERED: ALBUTEROL FS 2.5 MG/3 ML VIAL.NEB ONE (08:29)
[2017-11-09] MEDS ORDERED: HYDROMORPHONE INJ 2 MG/ML DISP.SYRIN ONE (08:51)
[2017-11-09] MEDS: DAKINS QUARTER STRENGTH (0.125%) 480 ML BOTTLE TOP SCH (09:00)
[2017-11-09] MEDS ORDERED: ZINC SULFATE 220 MG CAPSULE PO SCH (09:00)
[2017-11-09] MEDS: NYSTATIN TOP POWDER 15 GM BOTTLE TP SCH ×4 (09:00→18:30)
[2017-11-09] MEDS ORDERED: CHOLECALCIFEROL 1,000 UNIT TABLET (VIT D3) PO SCH (09:00)
[2017-11-09] MEDS: ASCORBIC ACID 500 MG TABLET PO SCH (09:30)
[2017-11-09] MEDS: ZINC SULFATE 220 MG CAPSULE PO SCH (09:30)
[2017-11-09] MEDS ORDERED: HYDROCODONE/APAP 5/325MG 1 EACH TABLET PO PRN (09:30)
[2017-11-09] MEDS: MORPHINE SULFATE INJ 2 MG/ML DISP.SYRIN IV PRN ×5 (09:58→22:34)
[2017-11-09] MEDS: FOLIC ACID 1 MG TABLET PO SCH (09:58)
[2017-11-09] MEDS: OXYBUTYNIN CHLORIDE 5 MG TABLET PO SCH ×2 (09:58→17:39)
[2017-11-09] MEDS: ESCITALOPRAM OXALATE (10 MG) 10 MG TABLET PO SCH (09:58)
[2017-11-09] MEDS: FLUOXETINE HCL 20 MG CAPSULE PO SCH (09:58)
[2017-11-09] MEDS: MULTIVITAMINS,THERAGRAN 1 UDTAB TABLET PO SCH (09:58)
[2017-11-09] MEDS: FERROUS SULFATE (325 MG) 325 MG/TAB TABLET PO SCH ×3 (09:58→17:36)
[2017-11-09] MEDS: Magnesium 1GM/D5W 100ML PREMIX 100 ML IV SCH ×4 (10:00→14:04)
--- NOTE | 2017-11-09 10:15 | NUR ---
MS/RN Back from OR Patient back from operating room following debridement and skin grafting to right lower leg. Wound dressing clean and dry, no oozing noted through either dressing. Post op orders carried out, will continue to monitor and ensure safety.
--- NOTE | 2017-11-09 13:58 | NUR ---
MS/RN Magnesium Magnesium level 1.7, replaced with 2gm.
--- NOTE | 2017-11-09 15:00 | NUR ---
MS/RN S/B Dr Alvares Seen by Dr Alvares - morphine increased to 4mg every 3 hours as needed, ativan now 2mg PO every 6 hours prn. MD made aware of drainage, stated to continue to observe and inform surgeon if any further drainage.
[2017-11-09] MEDS: CEFAZOLIN 2 GM in IV D5W 50 ML IV SCH (15:43)
[2017-11-09] MEDS: LORAZEPAM 1 MG TABLET PO PRN (15:43)
[2017-11-09 16:00] VITALS: BP 142/88
[2017-11-09 16:14] VITALS: BP 142/88
--- NOTE | 2017-11-09 16:42 | NUR ---
MS/RN Dressing reinforced Dressing to right thigh noted to be saturated in blood, outer dressing changed, pressure dressing applied and rewrapped. Patient reminded that she should be on bedrest and not put wait on right lower leg which could result in bleeding, stated understanding. Will continue to monitor.
--- NOTE | 2017-11-09 18:25 | NUR ---
MS/RN End note Patient remains in stable condition. Reminded to keep right leg elevated on pillows at all time to prevent further swelling. Pain medication administered as requested. All needs attended, will endorse to cook night.
--- NOTE | 2017-11-09 19:30 | NUR ---
MS RN NOTE: PATIENT RESTING IN BED, NO ACUTE DISTRESS NOTED. BREATHING EVEN AND UNLABORED, NO SOB NOTED. MIDLINE TO RUE IN PLACE. DRESSING TO RLE/THIGH IN PLACE, NO BLEEDING NOTED. BED LOCKED AND IN LOWEST POSITION, CALL LIGHT IN REACH. WILL CONTINUE TO MONITOR.
[2017-11-09 20:00] VITALS: BP 168/98
[2017-11-09] MEDS: GABAPENTIN 300 MG CAPSULE PO SCH (21:56)
[2017-11-09] MEDS: ZOLPIDEM TARTRATE 10 MG TABLET PO PRN (22:34)
--- NOTE | 2017-11-09 22:45 | NUR ---
MS RN NOTE: PATIENT COMPLAINS OF PAIN TO RIGHT THIGH/LEG /, MORPHINE 4MG IV GIVEN PER MD ORDER. PATIENT ALSO REQUESTING FOR SLEEPING MEDICATION, AMBIEN 10MG ORAL GIVEN PER MD ORDER. WILL CONTINUE TO MONITOR.
[2017-11-10] MEDS: CEFAZOLIN 2 GM in IV D5W 50 ML IV SCH ×4 (00:46→23:11)
--- NOTE | 2017-11-10 06:10 | NUR ---
MS RN NOTE: PATIENT RESTING IN BED, NO ACUTE DISTRESS NOTED. BREATHING EVEN AND UNLABORED, NO SOB NOTED. MIDLINE TO RUE IN PLACE. DRESSING TO RLE/THIGH IN PLACE, REINFORCED WITH ABD PAD AND SECURED WITH TAPE. BED LOCKED AND IN LOWEST POSITION, CALL LIGHT IN REACH. WILL ENDORSE TO DAY NURSE TO CONTINUE WITH PLAN OF CARE.
[2017-11-10] MEDS: NYSTATIN TOP POWDER 15 GM BOTTLE TP SCH ×5 (06:40→17:58)
[2017-11-10] MEDS: MORPHINE SULFATE INJ 2 MG/ML DISP.SYRIN IV PRN ×4 (07:21→17:50)
[2017-11-10] MEDS: QUETIAPINE FUMARATE 25 MG TABLET PO SCH ×2 (07:37→16:41)
[2017-11-10] MEDS: risperiDONE 0.25 MG TABLET PO SCH ×2 (07:37→16:41)
[2017-11-10 08:00] VITALS: BP 129/70
[2017-11-10] MEDS: OXYBUTYNIN CHLORIDE 5 MG TABLET PO SCH ×2 (08:53→16:41)
[2017-11-10] MEDS: FOLIC ACID 1 MG TABLET PO SCH (08:53)
[2017-11-10] MEDS: FLUOXETINE HCL 20 MG CAPSULE PO SCH (08:53)
[2017-11-10] MEDS: ZINC SULFATE 220 MG CAPSULE PO SCH (08:53)
[2017-11-10] MEDS: LORAZEPAM 1 MG TABLET PO PRN ×2 (08:53→15:41)
[2017-11-10] MEDS: ASCORBIC ACID 500 MG TABLET PO SCH (08:53)
[2017-11-10] MEDS: FERROUS SULFATE (325 MG) 325 MG/TAB TABLET PO SCH ×3 (08:53→16:41)
[2017-11-10] MEDS: MULTIVITAMINS,THERAGRAN 1 UDTAB TABLET PO SCH (08:53)
[2017-11-10] MEDS: ESCITALOPRAM OXALATE (10 MG) 10 MG TABLET PO SCH (08:53)
[2017-11-10] MEDS: DAKINS QUARTER STRENGTH (0.125%) 480 ML BOTTLE TOP SCH (09:01)
--- NOTE | 2017-11-10 09:15 | NUR ---
MS/neonatal intensive care nurse Patient cleared for discharge per wound care Dr Amaral. Needs to follow up in the wound care center in one week, number to call for appointment . Dressings to be left dry and intact.
--- NOTE | 2017-11-10 10:53 | NUR ---
WOUND CARE CONSULT WOUND CARE RECEIVED CONSULT FOR RLE WOUND. WOUND CARE WILL DEFER CONSULT AND ALL TREATMENT PLANS TO SURGICAL TEAM WHO ARE CURRENTLY FOLLOWING. PATIENT WITH MAY AT 19, WOUND CARE WILL SEE PRN.
--- NOTE | 2017-11-10 13:30 | NUR ---
MS/RN S/B Tiffanie Garcia MANAGER MANAGEMENT Seen by MANAGER MANAGEMENT with orders to consult Dr Carrion for pain management consult. Morning labs ordered.
[2017-11-10 16:00] VITALS: BP 132/82
[2017-11-10] MEDS ORDERED: LOPERAMIDE HCL (2 MG CAP) 2 MG CAPSULE PO ONE (16:00)
--- NOTE | 2017-11-10 16:40 | NUR ---
MS/RN Loose stool Patient complaining of loose stool, due to anti-biotic use. CONSTRUCTION FIELD ENGINEER called and order given for Imodium.
--- NOTE | 2017-11-10 17:30 | NUR ---
MS/RN S/B Dr Carrion Seen by Dr Carrion - new medications ordered with instructions to administer IV opiods for breakthrough pain only. -oxycontin 10mg BID -gabapentin 300mg every 8hrs
[2017-11-10] MEDS: oxyCODONE HCL SR 10MG TAB.SR.12H PO SCH ×2 (17:50→21:06)
[2017-11-10] MEDS: GABAPENTIN 300 MG CAPSULE PO SCH ×2 (17:50→21:06)
--- NOTE | 2017-11-10 18:59 | NUR ---
MS/RN End note Patient sleeping soundly at this time, appears in no distress. Right leg remains elevated on pillows. Both dressings remain dry and intact. Safety measures in place, will continue to monitor and ensure safety.
--- NOTE | 2017-11-10 19:15 | NUR ---
RN Notes Received pt asleep, on room air, breathing regular and unlabored. No signs opf distress and discomfort noted. IV access on right upper midline and left hand patent and intact. Right lower leg dressing and right thigh clean, dry and intact. Kept bed in the lowest position, locked, side rails x2 up with call light within reach. Safety measures and fall precaution observed. Will continue to monitor pt.
[2017-11-10 20:00] VITALS: BP 122/66
[2017-11-10 22:00] VITALS: BP 122/66
[2017-11-11] MEDS: MORPHINE SULFATE INJ 2 MG/ML DISP.SYRIN IV PRN ×5 (06:33→23:52)
[2017-11-11] MEDS: NYSTATIN TOP POWDER 15 GM BOTTLE TP SCH ×5 (06:44→16:45)
--- NOTE | 2017-11-11 07:22 | NUR ---
RN NOTES PT SLEPT WELL OVERNIGHT. PAIN CONTROLLED WITH CURRENT REGIMEN. KEPT PT CLEAN AND DRY. ALL NEEDS MET. ENDORSED TO MORNING RN FOR CONTINUITY OF CARE.
--- NOTE | 2017-11-11 07:25 | NUR ---
RN NOTES PATIENT ASLEEP BUT RESPONSIVE TO VERBAL STIMULI, BREATHING EVEN AND UNLABORED, DENIES PAIN OR DISCOMFORT AT THIS TIME. NEEDS ATTENDED, KEPT COMFORTABLE, CALL LIGHT WITHIN REACH, WILL CONTINUE TO MONITOR.
[2017-11-11 08:15] VITALS: BP 136/76
[2017-11-11] MEDS: ESCITALOPRAM OXALATE (10 MG) 10 MG TABLET PO SCH (08:16)
[2017-11-11] MEDS: MULTIVITAMINS,THERAGRAN 1 UDTAB TABLET PO SCH (08:16)
[2017-11-11] MEDS: LORAZEPAM 1 MG TABLET PO PRN ×2 (08:16→17:54)
[2017-11-11] MEDS: CEFAZOLIN 2 GM in IV D5W 50 ML IV SCH (08:16)
[2017-11-11] MEDS: FLUOXETINE HCL 20 MG CAPSULE PO SCH (08:16)
[2017-11-11] MEDS: ASCORBIC ACID 500 MG TABLET PO SCH (08:16)
[2017-11-11] MEDS: FOLIC ACID 1 MG TABLET PO SCH (08:16)
[2017-11-11] MEDS: ZINC SULFATE 220 MG CAPSULE PO SCH (08:17)
[2017-11-11] MEDS: FERROUS SULFATE (325 MG) 325 MG/TAB TABLET PO SCH ×3 (08:17→16:26)
[2017-11-11] MEDS: GABAPENTIN 300 MG CAPSULE PO SCH ×4 (08:17→21:57)
[2017-11-11] MEDS: OXYBUTYNIN CHLORIDE 5 MG TABLET PO SCH ×2 (08:17→16:26)
[2017-11-11] MEDS: risperiDONE 0.25 MG TABLET PO SCH ×2 (08:20→16:26)
[2017-11-11] MEDS: QUETIAPINE FUMARATE 25 MG TABLET PO SCH ×2 (08:20→16:26)
[2017-11-11] MEDS: DAKINS QUARTER STRENGTH (0.125%) 480 ML BOTTLE TOP SCH (08:27)
[2017-11-11] MEDS: oxyCODONE HCL SR 10MG TAB.SR.12H PO SCH (09:15)
[2017-11-11 16:22] VITALS: BP 136/71
--- NOTE | 2017-11-11 18:25 | NUR ---
RN NOTES PATIENT A/OX3, NO DISTRESS NOTED, REFUSING IV HYDRATION AT THIS TIME, PATIENT TOLERATED ALL MEALS, DENIES PAIN AT THIS TIME. PER PODIATRY NO NEED TO CHANGE DRESSING ON RLE AT THIS TIME, JUST KEEP DRESSING C/D/I. NEEDS ATTENDED AND MET, CALL LIGHT WITHIN REACH, WILL ENDORSE TO BISCUIT MAKER FOR COLLINS.
--- NOTE | 2017-11-11 19:49 | NUR ---
RN NOTES RECEIVED PT, AWAKE ON BD, A/OX3,COMPLAINED OF GENERALIZED PAIN- MORPHINE 4MG IV GIVEN ORDERED, V/S STABLE, PT. IS OBESE, RIGHT UPPER ARM MIDLINE , CALL LIGHT WITHIN REACH, SIDERAILSUPX2, CONTINUE TO MONITOR
[2017-11-11 20:00] VITALS: BP 109/54
[2017-11-11] MEDS: oxyCODONE HCL SR 20MG TAB.SR.12H PO SCH (21:13)
--- NOTE | 2017-11-11 21:15 | NUR ---
RN NOTES PT. POOP ON THE FLOOR , SHE WAS CLAIMING SHE'S HAVING DIARRHEA BUT THE GARAGE DOOR INSTALLER AND THE OTHER NURSE TOLD ME THAT IT WAS A FORMED STOOL. PT. FINISHED I BOX OF PIZZA , I BOX OF CHICKEN WINGS AND SHE HAS I MORE BOX ON HER BEDSIDE. GAVE EDUCATION REGARDING EATING THIS KIND OF STUFF BUT PT.IS NON COMPLIANT
--- NOTE | 2017-11-11 23:57 | NUR ---
RN NOTES COMPLAINED OF GENERALIZED PAIN- MROPHINE 4 MG IV GIVEN ORDERED, V/S STABLE
[2017-11-12] VITALS (8 sets, daily range): BP systolic 109–157; BP diastolic 54–97
[2017-11-12] MEDS: ZOLPIDEM TARTRATE 10 MG TABLET PO PRN ×2 (01:19→22:10)
--- NOTE | 2017-11-12 01:23 | NUR ---
RN NOTES PT. ASKED FOR SLEEPING PILL- AMBIEN 10 MG PO GIVEN ORDERED, V/S STABLE
[2017-11-12] MEDS ORDERED: MORPHINE SULFATE INJ 2 MG/ML DISP.SYRIN ONE (04:35)
[2017-11-12] MEDS: MORPHINE SULFATE INJ 2 MG/ML DISP.SYRIN IV PRN ×4 (04:39→15:55)
--- NOTE | 2017-11-12 05:06 | NUR ---
RN NOTES COMPLAINED OF GENERALIZED PAIN- MORPHINE 4 MG PO GIVEN ORDERED, V/ STABLE
[2017-11-12] MEDS: risperiDONE 0.25 MG TABLET PO SCH ×2 (06:20→17:17)
[2017-11-12] MEDS: QUETIAPINE FUMARATE 25 MG TABLET PO SCH ×2 (06:21→17:19)
[2017-11-12] MEDS: NYSTATIN TOP POWDER 15 GM BOTTLE TP SCH ×2 (06:22→18:55)
--- NOTE | 2017-11-12 06:35 | NUR ---
RN NOTES SLEEPING BUT AROUSABLE, DENIES PAIN AT THIS TIME, NO SOB, MORNING CARE RENDERED, CALL LIGHT WITHIN REACH, SIDERAILSUPX2, PT. NEEDS ATTENDED. ENDORSED TO DAYSHIFT NURSE FOR CONTINUITY OF CARE
--- NOTE | 2017-11-12 07:15 | NUR ---
RN INITIAL NOTES: PATIENT RESTING IN BED. NONLABORED BREATHING NOTED ON ROOM AIR. DENYING PAIN AT THE MOMENT. BED IN LOWEST LOCKED POSITION. CALL LIGHT WITHIN REACH. EDUCATED GRANULATOR OPERATOR LIGHT USAGE
[2017-11-12] MEDS: LORAZEPAM 1 MG TABLET PO PRN (07:46)
--- NOTE | 2017-11-12 07:49 | NUR ---
PATIENT STATING FEELING ANXIOUS. PATIENT ENCOURAGED TO EXPRESS FEELINGS AND EMOTIONS. TREATMENT PLAN DISCUSSED WITH PATIENT. PATIENT DENYING SI AND HI. ATIVAN ADMINISTERED PER ORDERS
[2017-11-12] MEDS: DAKINS QUARTER STRENGTH (0.125%) 480 ML BOTTLE TOP SCH (09:00)
[2017-11-12] MEDS: NICOTINE PATCH (7MG) 7 MG PATCH.TD24 TD SCH (09:00)
[2017-11-12] MEDS ORDERED: ERGOCALCIFEROL (VITAMIN D 2) 50,000 UNIT CAPSULE PO SCH (09:00)
--- NOTE | 2017-11-12 09:16 | NUR ---
PATIENT STATES DECREASED ANXIETY
[2017-11-12] MEDS: FERROUS SULFATE (325 MG) 325 MG/TAB TABLET PO SCH ×3 (09:21→17:19)
[2017-11-12] MEDS: ESCITALOPRAM OXALATE (10 MG) 10 MG TABLET PO SCH (09:21)
[2017-11-12] MEDS: ASCORBIC ACID 500 MG TABLET PO SCH (09:21)
[2017-11-12] MEDS: GABAPENTIN 300 MG CAPSULE PO SCH ×4 (09:21→21:01)
[2017-11-12] MEDS: OXYBUTYNIN CHLORIDE 5 MG TABLET PO SCH ×2 (09:22→17:20)
[2017-11-12] MEDS: MULTIVITAMINS,THERAGRAN 1 UDTAB TABLET PO SCH (09:22)
[2017-11-12] MEDS: oxyCODONE HCL SR 20MG TAB.SR.12H PO SCH ×2 (09:22→20:57)
[2017-11-12] MEDS: FLUOXETINE HCL 20 MG CAPSULE PO SCH (09:23)
[2017-11-12] MEDS: ZINC SULFATE 220 MG CAPSULE PO SCH (09:23)
[2017-11-12] MEDS: FOLIC ACID 1 MG TABLET PO SCH (09:23)
--- NOTE | 2017-11-12 11:58 | NUR ---
PATIENT REFUSING NICOTINE PATCH, BENEFITS AND RISKS EXPLAINED. PATIENT STILL REFUSING
[2017-11-12] MEDS: LOPERAMIDE HCL (2 MG CAP) 2 MG CAPSULE PO PRN ×3 (12:28→22:10)
--- NOTE | 2017-11-12 17:05 | NUR ---
RN NOTES NOTIFIED ASPEN TRIPATHI NP THAT UPPER LEG DRESSING INTACT WITH NO BLEEDING NOTED. SCANT BLEEDING NOTED ON TAPE AT THE EDGE OF THE DRESSING. PER ASPEN TRIPATHI NP, KEEP DRESSING INTACT PER PODIATRY
--- NOTE | 2017-11-12 17:23 | NUR ---
IMMUDIUM ADMINISTERED PER ORDERS FOR X2 EPISODES OF DIARRHEA PER PATIENT, SHE CONSUMED DOMINOS PIZZA WELL CHICKEN WINGS LAST NIGHT. PER PATIENT, SHE STARTED HAVING DIARRHEA AFTER THAT ASPEN TRIPATHI BUSHEL WORKER NOTIFIED
--- NOTE | 2017-11-12 19:22 | NUR ---
RN CLOSING NOTES: PATIENT RESTING IN BED. NONLABORED BREATHING NOTED ON ROOM AIR. DENYING PAIN AT THE MOMENT. BED IN LOWEST LOCKED POSITION. CALL LIGHT WITHIN REACH. MIDLINE ON BEL PATENT AND INTACT, IV SITE ON LEFT HAND GAUGE 22 PATENT AND INTACT. DRESSINGS ON RIGHT EXTREMITY INTACT PER ORDERS. DURING SHIFT, PATIENT KEPT CLEAN AND DRY. TURNED AND REPOSITIONED EVERY 2 HOURS ASPIRATION AND FALL PRECAUTIONS IMPLEMENTED. ENDORSED TO JACQUES AGUIRRE
[2017-11-12] MEDS: HYDROCODONE/APAP 10/325MG 1 EA TABLET PO PRN (20:40)
--- NOTE | 2017-11-12 20:40 | NUR ---
RN NOTES PT. COMPLAINED OF GENERALIZED PAIN- NORCO 10/325 MG PO GIVEN ORDERED, V/S STABLE
--- NOTE | 2017-11-12 20:45 | NUR ---
RN NOTES PT. WAS MOVED TO ANOTHER FLOOR- 3 WEST TO ROOM 320-1, PT IS ON STABLE CONDITION
--- NOTE | 2017-11-12 20:45 | NUR ---
ms rn notes receive pt in bed from ms2, a/ox3, respirations even and unlabored, stable, no s/s distress, safety measures implemented. will monitor
--- NOTE | 2017-11-12 21:00 | NUR ---
spoke to Dr. lamas hospitalist relayed delivery truck driver came in the floor pt ordered 1 box of pizza again per pt pizza is not causing her diarrhea its the antibiotic, explained her that were not permitting her to eat food outside pt refused and doesn't like hospital food she said she's gonna eat [address] lamas let her eat the pizza pt a/o x4
[2017-11-13] MEDS: HYDROCODONE/APAP 10/325MG 1 EA TABLET PO PRN ×3 (05:03→15:43)
[2017-11-13] MEDS: QUETIAPINE FUMARATE 25 MG TABLET PO SCH (06:04)
[2017-11-13] MEDS: risperiDONE 0.25 MG TABLET PO SCH (06:05)
[2017-11-13] MEDS: NYSTATIN TOP POWDER 15 GM BOTTLE TP SCH (06:09)
--- NOTE | 2017-11-13 06:17 | NUR ---
MS RN CLOSING NOTES PT COMFORTABLY ASLEEP AND EASILY AWAKEN, STABLE,NOT IN DISTRESS. RESPIRATION EVEN AND UNLABORED. KEPT CLEAN AND DRY AND COMFORTABLE, ALL NURSING CARE RENDERED. NEEDS ATTENDED AND ANTICIPATED, NO FACIAL GRIMACING NOTED. NO COMPLAIN OF PAIN. GOOD SKIN CARE PROVIDED. ON LOW BED AT ALL TIMES TO ENSURE SAFETY. SAFE HAZARD FREE ENVIRONMENT PROVIDED. CALL LIGHT WITHIN EASY TO REACH. WILL ENDORSE NEXT SHIFT CONTINUITY OF CARE.
--- NOTE | 2017-11-13 07:25 | NUR ---
RN OPENING NOTES RECEIVED PT. PT IS STABLE AND RESTING IN BED. NO S/S OF RESP DISTRESS OR SOB. PT HAS C/O PAIN 8/10 IN RLE. WILL ADDRESS PHARMACOLOGICALLY. DRESSING ON RLE NOTED, UPPER THIGH DRESSING SATURATED, WILL REINFORCE. SAFETY MEASURES IN PLACE, CALL LIGHT WITHIN REACH. WILL CONTINUE TO MONITOR.
[2017-11-13 08:00] VITALS: BP 100/51
[2017-11-13] MEDS: FLUOXETINE HCL 20 MG CAPSULE PO SCH (08:12)
[2017-11-13] MEDS: oxyCODONE HCL SR 20MG TAB.SR.12H PO SCH (08:13)
[2017-11-13] MEDS: GABAPENTIN 300 MG CAPSULE PO SCH ×2 (08:13→13:58)
[2017-11-13] MEDS: ZINC SULFATE 220 MG CAPSULE PO SCH (08:13)
[2017-11-13] MEDS: FOLIC ACID 1 MG TABLET PO SCH (08:13)
[2017-11-13] MEDS: OXYBUTYNIN CHLORIDE 5 MG TABLET PO SCH (08:13)
[2017-11-13] MEDS: FERROUS SULFATE (325 MG) 325 MG/TAB TABLET PO SCH ×2 (08:13→13:58)
[2017-11-13] MEDS: MULTIVITAMINS,THERAGRAN 1 UDTAB TABLET PO SCH (08:13)
[2017-11-13] MEDS: ESCITALOPRAM OXALATE (10 MG) 10 MG TABLET PO SCH (08:13)
[2017-11-13] MEDS: LOPERAMIDE HCL (2 MG CAP) 2 MG CAPSULE PO PRN (08:13)
[2017-11-13] MEDS: ASCORBIC ACID 500 MG TABLET PO SCH (08:13)
[2017-11-13] MEDS: NICOTINE PATCH (7MG) 7 MG PATCH.TD24 TD SCH (08:19)
[2017-11-13] MEDS: DAKINS QUARTER STRENGTH (0.125%) 480 ML BOTTLE TOP SCH (08:19)
[2017-11-13] MEDS: LORAZEPAM 1 MG TABLET PO PRN (08:54)
[2017-11-13] MEDS ORDERED: ALLA266C2 TP (10:07)
[2017-11-13] MEDS ORDERED: NICO-760 TD (10:07)
[2017-11-13] MEDS ORDERED: OXYC20TA42 PO (10:07)
--- NOTE | 2017-11-13 16:34 | NUR ---
DISCHARGE NOTE PT DISCHARGED TO [facility]. REPORT CALLED IN AND GIVEN TO JACQUES TRINIDAD. DISCHARGE TEACHING PERFORMED USING [employer]. ALL DISCHARGE PAPER WORK SIGNED COPIED AND PLACED IN CHART. PT VERBALIZES UNDERSTANDING OF TEACHING. BOTH BEL AND LAC IV ACCESS D/C. ID BAND REMOVED. PHOTO DOCUMENTATION OF RIGHT THIGH WOUND TAKEN. PT REFUSES PHOTO OF RLE STATING "THE DOCTOR IS THE ONLY ONE WHO CAN SEE IT." WOUNDS REDRESSED. PT LEFT HOSPITAL IN AMBULANCE WITH BAND SCROLL SAW OPERATOR TRANSPORTATION.
== END 2017-11-13 16:13 | DRG 264 ==
LOC: ER 12:15 → MEDSG2 13:59 → MED 11-12 20:51
PROVIDERS: ADMIT Nurse Practitioner Acute Care; ATTEND Nurse Practitioner Acute Care
PROC: 05H533Z Insertion of Infusion Device into Right Subclavian Vein, Percutaneous Approach (ICD-10-PCS; 2017-11-08)
PROC: B546ZZA Ultrasonography of Right Subclavian Vein, Guidance (ICD-10-PCS; 2017-11-08)
PROC: 0HBHXZZ Excision of Right Upper Leg Skin, External Approach (ICD-10-PCS; 2017-11-09)
PROC: 0HRMX74 Replacement of Right Foot Skin with Autologous Tissue Substitute, Partial Thickness, External Approach (ICD-10-PCS; principal; 2017-11-09 11:30)
DX: I87.2 Venous insufficiency (chronic) (peripheral) (principal); L97.319 Non-pressure chronic ulcer of right ankle with unspecified severity; Z68.43 Body mass index [BMI] 50.0-59.9, adult; M86.661 Other chronic osteomyelitis, right tibia and fibula; E44.0 Moderate protein-calorie malnutrition; I73.9 Peripheral vascular disease, unspecified; F32.9 Major depressive disorder, single episode, unspecified; M19.90 Unspecified osteoarthritis, unspecified site; I87.8 Other specified disorders of veins; J45.909 Unspecified asthma, uncomplicated; F41.9 Anxiety disorder, unspecified; Z79.899 Other long term (current) drug therapy; E66.01 Morbid (severe) obesity due to excess calories; G89.4 Chronic pain syndrome; E55.9 Vitamin D deficiency, unspecified; D69.6 Thrombocytopenia, unspecified; D63.8 Anemia in other chronic diseases classified elsewhere; Z79.891 Long term (current) use of opiate analgesic; Z79.2 Long term (current) use of antibiotics; L98.9 Disorder of the skin and subcutaneous tissue, unspecified; Z72.0 Tobacco use; M79.2 Neuralgia and neuritis, unspecified
CPT/HCPCS: 36415; 71045-TC; 80048-TC; 80053-TC; 80061-TC; 80076-TC; 83735-TC; 84100-TC; 84443-TC; 84703-TC; 85025-TC; 85730-TC; 87070-TC; 87081-TC; A4606; A6253; A6402; A6403; J0330; J0690; J1170; J2250; J2270; J3010; J3475; J3490; J7030; J7060; Z7610

== ENCOUNTER 2017-12-17 10:02 | Inpatient (IN) | payer MEDICARE, OTHER ==
[~2017-12-17] VITALS: Ht 165.1 cm; Wt 149.7 kg
[~2017-12-17 10:02] MED LIST changes: +ALLA266C2 TP; -ASCO500T9 PO; +NICO-760 TD; +OXYC20TA42 PO
[2017-12-17 10:40] LABS: BASOPHILS % (AUTO) 0.9 % (0.0-2.0); EOSINOPHILS % (AUTO) 3.3 % (0.0-6.0); HEMATOCRIT 41 % (33-45); HEMOGLOBIN 13.7 g/dL (11.5-14.8); LYMPHOCYTES # (AUTO) 1.4 /CMM (0.8-4.8); MEAN CORPUSCULAR HGB CONC 34 g/dl (31.0-36.0); MEAN CORPUSCULAR VOLUME 92 fL (82-100); MONOCYTES # (AUTO) 0.5 /CMM (0.1-1.30); NEUTROPHILS # (AUTO) 2.7 /CMM (1.8-8.9); NEUTROPHILS % (AUTO) 56.8 % (43.0-81.0); PLATELET COUNT (AUTO) 163 /CMM (150-450); RDW COEFFICIENT OF VARIATION 13.4 (11.5-15.0); RED BLOOD CELL COUNT(AUTO) 4.44 MIL/uL (4.0-5.2); WHITE BLOOD COUNT (AUTO) 4.8 K/uL (4.3-11.0)
[2017-12-17 10:50] LABS: CALCIUM, SERUM 8.1 mg/dL (8.5-10.1); POTASSIUM 4.2 mmol/L (3.5-5.1)
[2017-12-17 10:53] LABS: INR 0.97 (0.85-1.15)
[2017-12-17] MEDS ORDERED: OXYC10TA49 PO (11:06)
[2017-12-17] MEDS ORDERED: HYDR-552 PO (11:06)
[2017-12-17] MEDS ORDERED: ACET-868 PO (11:06)
[2017-12-17] MEDS ORDERED: AMIN30LI4 PO (11:06)
[2017-12-17] MEDS ORDERED: HYDROCODONE/APAP 10/325MG 1 EA TABLET PO ONE (11:30)
[2017-12-17] MEDS ORDERED: HYDROCODONE/APAP 10/325MG 1 EA TABLET ONE (11:42)
--- NOTE | 2017-12-17 11:50 | NUR ---
CALLED [facility] PAGED MACHINE OPERATOR HAY STACKER ALTAF [place].
--- NOTE | 2017-12-17 12:12 | NUR ---
PT ADMIT TO ROOM 322-1 ALVINO HANNA
--- NOTE | 2017-12-17 12:21 | NUR ---
NKE with RN Von. Pt made aware of plan of care appears comfortable dozing on/off
[2017-12-17] MEDS ORDERED: HYDROCODONE/APAP 5/325MG 1 EACH TABLET PO PRN ×2 (13:00→15:00)
[2017-12-17] MEDS ORDERED: MAG HYDROX/AL HYDROX/SIMETH 30 ML UDC PO PRN (13:00)
[2017-12-17] MEDS ORDERED: Z GUARD REMEDY 2 OZ OINT TP PRN ×2 (13:00→15:00)
[2017-12-17] MEDS ORDERED: ONDANSETRON HCL/PF 4 MG/2 ML VIAL IVP PRN (13:00)
[2017-12-17] MEDS ORDERED: MAGNESIUM HYDROXIDE 30 ML UDC PO PRN (13:00)
[2017-12-17] MEDS ORDERED: ACETAMINOPHEN 325 MG TABLET PO PRN ×2 (13:00→15:00)
--- NOTE | 2017-12-17 13:00 | NUR ---
MSRN OPENING. PT RECIEVED A&0X3, TOLERATING ROOM AIR BUT REPORTS SOB WITH EXERTION. PT REPORTS 6/10 PAIN AND HAS MULTIPLE CONCERNS REGARDING PAIN MANAGEMENT. PT BRIEFED ON LANGE AND POC. PT MED ORDERS REVIEWED WITH FOREIGN LANGUAGE INTERPRETER SK AND ORDERS PLACED WITH ASSISTANCE OF MED.RECON. BELONGINGS LIST REVIEWED. SKIN ASSESSMENT REFUSED UNTIL PT HAS RESTED. PT WITH DIET AND FOOD ORDERED BUT TO BE NPO FROM 12MIDNIGHT TONIGHT. PT AMBULATORY. PT BED IN LOWEST LOCKED POSITION WITH HNADRAILSX2 AND CALL BE WITHIN REACH. PT VITALS WNL AND PRN ANALGESIA GIVEN IN ER. PT WITHOUT CONCERN OR COMPLAINT AT THIS TIME.
[2017-12-17 13:38] VITALS: BP 144/89
[2017-12-17] MEDS ORDERED: HYDROCODONE/APAP 10/325MG 1 EA TABLET PO PRN (14:30)
--- NOTE | 2017-12-17 14:30 | NUR ---
MSRN. SKIN ASSESSMENT INCOMPLETED R/T TO PT REFUSAL. LEGGS AND ABDOMINAL FOLD COMPLETED. PT WITH EXTENSIVE FOUL ODOR, REDNESS AND EXCORIATION TO ABDOMINAL FOLD. WITH STAFFX3 UNABLE TO PHOTOGRAPH IN ITS ENTIRETY R/T TO PAIN. AREA CLEANED MUCH TOLERATED AND NYSTATIN AND Z GAURD APPLIED. SACRUM AND POSTERIOR SURFACES NOT ASSESSED OR PHOTOGRAPHED PT REFUSING, WILL ENDORSE TO NIGHT NURSE.
[2017-12-17] MEDS ORDERED: MORPHINE SULFATE INJ 2 MG/ML DISP.SYRIN IV PRN (15:00)
[2017-12-17] MEDS: IV NS 0.9% 1,000 ML IV PRN (15:55)
[2017-12-17] MEDS: PIPERACILLIN /TAZOBACTAM 3.375 G in IV D5W 50 ML IV SCH (15:55)
[2017-12-17 16:12] VITALS: BP 117/59
[2017-12-17] MEDS ORDERED: FERROUS SULFATE (325 MG) 325 MG/TAB TABLET PO SCH (17:00)
[2017-12-17] MEDS: NYSTATIN TOP POWDER 15 GM BOTTLE TP SCH (17:19)
[2017-12-17] MEDS: PROSOURCE / PROSTAT (PYXIS) 30 ML UDC PO SCH (17:21)
[2017-12-17] MEDS: oxyCODONE IR immediate release 5 MG PO SCH (17:23)
[2017-12-17] MEDS: OXYBUTYNIN CHLORIDE 5 MG TABLET PO SCH (17:23)
[2017-12-17] MEDS: LORAZEPAM 0.5 MG TABLET PO PRN (17:30)
--- NOTE | 2017-12-17 18:38 | NUR ---
MSRN CLOSING. PT REMAINS A&0X3. PT HOSTILE, SARCASTIC AND BLAMING TOWARDS MAINTENANCE MGR AND RN. PT TOLERATING ROOM AIR AND SARCASTICALLY REPORTS PAIN BUT UNWILLING TO SCALE OR ENGAGE IN PAIN MANAGEMENT STRATEGIES. IN BETWEEN COMPLAINTS PT RESTING PEACEFULLY. PT WITH IVF PER RX AT THIS TIME. PT REFUSED TOTAL SKIN ASSESSMENT, WILL ENDORSE TO NIGHT NURSE TO COMPLETE IF ALLOWED. PT BED IN LOWEST LOCKED POSITION WITH HANDRAILSX2 AND CALL BE WITHIN REACH. WILL ENDORSE TO NIGHT NURSE AT BEDSIDE FOR COLLINS.
--- NOTE | 2017-12-17 19:40 | NUR ---
MS AIR ANALYSIS ENGINEERING TECHNICIAN INITIAL NOTES. RECEIVED REPORT FROM AM NURSE WHILE DOING ROUNDS PT RESTING AT THIS TIME WITH EYES CLOSED RESPIRATION EVEN AND NON-LABORED NOT IN ANY ACUTE DISTRESS NOTED. WITH IVF OF NS AT 75ML/HR INFUSING ON HER LEFT FOREARM . KEPT HER WARM AND COMFORTABLE AT ALL TIMES WILL CONTINUE MONITORING. PLACE CALL LIGHT AT REACH.
[2017-12-17 20:00] VITALS: BP 124/84
[2017-12-17] MEDS ORDERED: IBUPROFEN 400 MG TABLET PO SCH (21:00)
[2017-12-17] MEDS ORDERED: oxyCODONE HCL SR 20MG TAB.SR.12H PO SCH (21:00)
[2017-12-17] MEDS: IBUPROFEN 400 MG TABLET PO SCH (21:42)
[2017-12-17] MEDS: HYDROCODONE/APAP 10/325MG 1 EA TABLET PO PRN (21:43)
[2017-12-17] MEDS: GABAPENTIN 300 MG CAPSULE PO SCH (21:43)
[2017-12-17] MEDS: ZOLPIDEM TARTRATE 5 MG TABLET PO PRN (21:43)
[2017-12-17] MEDS ORDERED: ZOLPIDEM TARTRATE 10 MG TABLET PO SCH (22:00)
[2017-12-18] MEDS: PIPERACILLIN /TAZOBACTAM 3.375 G in IV D5W 50 ML IV SCH ×4 (00:42→17:04)
[2017-12-18] MEDS: HYDROCODONE/APAP 10/325MG 1 EA TABLET PO PRN ×2 (02:03→10:36)
--- NOTE | 2017-12-18 02:06 | NUR ---
MS ANGELINE NOTES PT WOKE UP AND ASKING FOR PAIN MEDS FOR HER LOWER LEGS WOUND. OFFERED MORPHINE BECAUSE SHE'S NPO AT THIS TIME FOR SURGERY TO DAY AT 0730 BUT PT REFUSED AND INSISTING THAT SHE WANTS NORCO TABLET WITH SIP OF WATER. SHE ALSO SIGNED ALL THE CONSENT FOR THE PROCEDURE TODAY WILL CONTINUE MONITORING. PLACE CALL LIGHT AT REACH.
[2017-12-18 04:25] LABS: BASOPHILS % (AUTO) 1.1 % (0.0-2.0); EOSINOPHILS % (AUTO) 3.4 % (0.0-6.0); HEMATOCRIT 40 % (33-45); HEMOGLOBIN 12.8 g/dL (11.5-14.8); LYMPHOCYTES # (AUTO) 1.5 /CMM (0.8-4.8); MEAN CORPUSCULAR HGB CONC 32 g/dl (31.0-36.0); MEAN CORPUSCULAR VOLUME 93 fL (82-100); MONOCYTES # (AUTO) 0.4 /CMM (0.1-1.30); MONOCYTES % (AUTO) 10.1 % (2.0-12.0); NEUTROPHILS # (AUTO) 2.2 /CMM (1.8-8.9); NEUTROPHILS % (AUTO) 50.4 % (43.0-81.0); PLATELET COUNT (AUTO) 169 /CMM (150-450); RDW COEFFICIENT OF VARIATION 14.8 (11.5-15.0); RED BLOOD CELL COUNT(AUTO) 4.26 MIL/uL (4.0-5.2); WHITE BLOOD COUNT (AUTO) 4.4 K/uL (4.3-11.0)
[2017-12-18 04:40] LABS: INR 1.03 (0.87-1.13)
[2017-12-18 04:46] LABS: CREATININE 0.9 mg/dL (0.6-1.3); MAGNESIUM 1.7 mg/dL (1.8-2.4); PHOSPHORUS 3.8 mg/dL (2.5-4.9); POTASSIUM 4.1 mmol/L (3.5-5.1)
[2017-12-18] MEDS: IBUPROFEN 400 MG TABLET PO SCH ×2 (05:00→21:50)
--- NOTE | 2017-12-18 07:00 | NUR ---
MS BALANCE RECESSER CLOSING NOTES OR NURSE CALLED TO ELECTROMECHANICAL ASSEMBLY TECHNICIAN THE PATIENT. PY IS AWAKE AND ALERT . ENDORSE TO AM NURSE FOR CONTINUITY OF CARE.
[2017-12-18] MEDS ORDERED: ANESTHESIA TRAY IN PYXIS 1 EA TRAY MC ONE (07:07)
[2017-12-18] MEDS ORDERED: MINERAL OIL 10 ML VIAL MC ONE ×2 (07:12→07:13)
[2017-12-18] MEDS ORDERED: LIDOCAINE HCL/PF 1% 30 ML SDV ONE (07:12)
[2017-12-18] MEDS ORDERED: BUPIVACAINE MPF 0.5% W/EPI INJ 30 ML VIAL ONE (07:12)
--- NOTE | 2017-12-18 07:15 | NUR ---
MS RN OPENING NOTE PATIENT IS NOT IN THE UNIT. WAS TAKEN TO THE OR FOR WOUND DEBRIDEMENT. WILL RESUME CARE AND CONTINUE TO MONITOR WHEN PATIENT IS BACK FROM PROCEDURE.
[2017-12-18] MEDS ORDERED: KETAMINE HCL (500MG/10ML) 50 MG/ML VIAL ONE (07:24)
[2017-12-18] MEDS ORDERED: MIDAZOLAM HCL 2 MG/2ML VIAL ONE (07:47)
[2017-12-18 08:00] VITALS: BP 153/84
[2017-12-18] MEDS ORDERED: Magnesium 1GM/D5W 100ML PREMIX PIGGYBACK IV ONE (08:00)
[2017-12-18] MEDS ORDERED: HYDROMORPHONE INJ 2 MG/ML DISP.SYRIN ONE (08:09)
[2017-12-18] MEDS ORDERED: Magnesium 1GM/D5W 100ML PREMIX 100 ML IV SCH (08:30)
[2017-12-18 09:00] VITALS: BP 153/84
[2017-12-18] MEDS ORDERED: CHOLECALCIFEROL 1,000 UNIT TABLET (VIT D3) PO SCH (09:00)
[2017-12-18] MEDS ORDERED: ESCITALOPRAM OXALATE (10 MG) 10 MG TABLET PO SCH (09:00)
[2017-12-18] MEDS: PROSOURCE / PROSTAT (PYXIS) 30 ML UDC PO SCH ×3 (09:13→17:06)
[2017-12-18] MEDS: FOLIC ACID 1 MG TABLET PO SCH (09:14)
[2017-12-18] MEDS: FLUOXETINE HCL 20 MG CAPSULE PO SCH (09:14)
[2017-12-18] MEDS: MULTIVITAMINS,THERAGRAN 1 UDTAB TABLET PO SCH (09:15)
[2017-12-18] MEDS: ZINC SULFATE 220 MG CAPSULE PO SCH (09:15)
[2017-12-18] MEDS: OXYBUTYNIN CHLORIDE 5 MG TABLET PO SCH ×2 (09:15→17:02)
[2017-12-18] MEDS: oxyCODONE IR immediate release 5 MG PO SCH ×2 (09:17→17:03)
[2017-12-18] MEDS: NYSTATIN TOP POWDER 15 GM BOTTLE TP SCH ×2 (09:26→17:04)
--- NOTE | 2017-12-18 09:30 | NUR ---
PATIENT ARRIVED TO THE UNIT FROM PROCEDURE. ALERT ORIENTED X4. ON 2L O2 VIA NC. TOLERATING WELL. DENIES PAIN AND SOB. RESPIRATIONS EVEN AND UNLABORED. PATIENT IS STABLE, VITAL SIGNS ARE STABLE. PATIENT WITH NEW WOUND VAC IN PLACE. POST OP DRESSING IS INTACT AND CLEAN. LEFT FOREARM 20G IVC, PATENT AND INTACT. PATIENT IS WITH ORDERS OF BEDREST FOR 48 HOURS. NON COMPLIANT. DEMANDS TO BE DISCONNECTED FROM WOUND VAC SO SHE CAN GET UP AND USE BEDSIDE COMMODE. USING CURSE WORDS WITH STAFF. PATIENT WAS HELPED TO BEDSIDE COMMODE. SAFETY MEASURES WERE APPLIED. BED IN LOW LOCKED POSITION, SIDE RAILS UP X2, CALL LIGHT WITHIN EASY REACH,WILL CONTINUE TO MONITOR.
[2017-12-18] MEDS: LORAZEPAM 0.5 MG TABLET PO PRN (09:57)
--- NOTE | 2017-12-18 11:06 | NUR ---
WOUND CARE CONSULT: DEFER TO SURGICAL TEAM FOR WOUND/SKIN TREATMENT PLAN. DEFER TO DPM FOR LOWER EXTREMITIES. WILL SEE PRN. CURRENT MAY SCORE IS 18.
[2017-12-18] MEDS ORDERED: oxyCODONE/APAP (5/325 MG) 1 UDTAB TABLET PO PRN (12:30)
[2017-12-18] MEDS ORDERED: KETOROLAC TROMETHAMINE INJ 30 MG/ML VIAL IV ONE (13:00)
[2017-12-18] MEDS: oxyCODONE/APAP (5/325 MG) 1 UDTAB TABLET PO PRN (15:13)
--- NOTE | 2017-12-18 15:27 | NUR ---
IV SITE DISLODGED. PATIENT IS A HARD STICK, LUANA AT BEDSIDE ATTEMPTING TO REPLACE THE IVC. WILL CONTINUE TO MONITOR.
[2017-12-18 16:00] VITALS: BP 128/75
--- NOTE | 2017-12-18 16:15 | NUR ---
NEW IV SITE PLACED ON LEFT AC 22G BY PLISSE MACHINE OPERATOR HELPERJACQUES HITCHCOCK. PATENT AND INTACT. WILL CONTINUE TO MONITOR.
[2017-12-18] MEDS: LORAZEPAM 1 MG TABLET PO PRN (17:09)
--- NOTE | 2017-12-18 17:13 | NUR ---
PATIENT REQUESTED TO HAVE HER ATIVAN WITH HER 5PM MEDICATIONS. REPORTS FEELING ANXIOUS. WILL ADMINISTER AND CONTINUE TO MONITOR.
--- NOTE | 2017-12-18 18:42 | NUR ---
MS RN CLOSING NOTE PATIENT IN BED, SLEEPING, EASILY AROUSED WITH VERBAL STIMULI, ORIENTED X4. ON ROOM AIR. TOLERATING WELL. DENIES PAIN AND SOB. RESPIRATIONS EVEN AND UNLABORED. PATIENT IS STABLE, VITAL SIGNS ARE STABLE. PATIENT S/P WOUND GRAFT, WITH WOUND VAC IN PLACE WITH ORDERED SETTINGS. POST OP DRESSING IS INTACT AND CLEAN. RIGHT UPPER EXTREMITY SKIN GRAFT SITE DRESSING WITH MODERATE DRAINAGE. NO DRESSING CHANGE ORDERED. FIRST DRESSING CHANGE TO BE PERFORMED BY MD. LEFT AC 22G IVC, WITH FLUIDS RUNNING AT 75ML/HR, PATENT AND INTACT. PATIENT IS WITH ORDERS OF BEDREST FOR 48 HOURS. NON COMPLIANT WITH ADVISED CARE. USES CURSE WORDS WITH STAFF. SAFETY MEASURES ARE IN PLACE, BED IN LOW LOCKED POSITION, SIDE RAILS UP X2, CALL LIGHT WITHIN EASY REACH, WILL ENDORSE TO PM NURSE FOR COLLINS.
--- NOTE | 2017-12-18 19:30 | NUR ---
MS/RN OPENING NOTES PT RECEIVED AWAKE, SITTING UP IN BED. A/OX3. REMAINS ON ROOM AIR, BREATHING EVEN AND UNLABORED. NO S/S OF SOB, REQUESTING PAIN MEDICATION AT THIS TIME. IV TO LAC PATENT AND INTACT RUNNING IVF ORDERED. BED IN LOW/LOCKED POSITION WITH CALL LIGHT IN REACH AND BILATERAL UPPER SIDE RAILS IN PLACE. WOUND VAC TO RIGHT LOWER EXTREMITY AT 125MM HG, NO OUTPUT NOTED. DRESSINGS TO RIGHT THIGH AND RLE INTACT. WILL CONTINUE TO MONITOR
[2017-12-18 20:00] VITALS: BP 139/80
[2017-12-18] MEDS: MORPHINE SULFATE INJ 4 MG/ML DISP.SYRIN IV PRN (20:00)
[2017-12-18] MEDS: GABAPENTIN 300 MG CAPSULE PO SCH (21:50)
[2017-12-18] MEDS: ZOLPIDEM TARTRATE 5 MG TABLET PO PRN (21:51)
[2017-12-19] MEDS: PIPERACILLIN /TAZOBACTAM 3.375 G in IV D5W 50 ML IV SCH ×5 (00:48→23:40)
[2017-12-19] MEDS: oxyCODONE/APAP (5/325 MG) 1 UDTAB TABLET PO PRN ×3 (00:52→18:06)
[2017-12-19] MEDS: IBUPROFEN 400 MG TABLET PO SCH ×3 (05:43→20:41)
[2017-12-19] MEDS: NYSTATIN TOP POWDER 15 GM BOTTLE TP SCH ×3 (05:45→16:54)
[2017-12-19] MEDS: IV NS 0.9% 1,000 ML IV PRN (05:54)
--- NOTE | 2017-12-19 06:43 | NUR ---
MS/RN CLOSING NOTES PT WITH EYES CLOSED. RESTING COMFORTABLY IN BED. REMAINS ON ROOM AIR, BREATHING EVEN AND UNLABORED. NO S/S OF SOB OR PAIN AT THIS TIME. PAIN MANAGED THROUGHOUT SHIFT. ENCOURAGED BEDREST [id number] PER MD ORDERS. IV TO LAC PATENT AND INTACT RUNNING IVF ORDERED. NO SIGNIFICANT CHANGES OVERNIGHT. ALL NEEDS MET. BED REMAINS IN LOW/LOCKED POSITION WITH CALL LIGHT IN REACH AND BILATERAL UPPER SIDE RAILS IN PLACE. ASSISTED WITH TURNING/REPOSITIONING Q2H, HEELS OFFLOADED. WOUND VAC TO RIGHT LOWER EXTREMITY AT 125MM HG, NO OUTPUT NOTED. WILL ENDORSE TO DAY SHIFT RN COLLINS.
[2017-12-19 07:20] LABS: BASOPHILS % (AUTO) 0.5 % (0.0-2.0); EOSINOPHILS % (AUTO) 3.4 % (0.0-6.0); HEMATOCRIT 40 % (33-45); HEMOGLOBIN 13.1 g/dL (11.5-14.8); LYMPHOCYTES # (AUTO) 1.3 /CMM (0.8-4.8); LYMPHOCYTES % (AUTO) 30.4 % (20.0-44.0); MEAN CORPUSCULAR HGB CONC 33 g/dl (31.0-36.0); MEAN CORPUSCULAR VOLUME 94 fL (82-100); MONOCYTES # (AUTO) 0.5 /CMM (0.1-1.30); MONOCYTES % (AUTO) 11.2 % (2.0-12.0); NEUTROPHILS # (AUTO) 2.3 /CMM (1.8-8.9); NEUTROPHILS % (AUTO) 54.5 % (43.0-81.0); PLATELET COUNT (AUTO) 146 /CMM (150-450); RDW COEFFICIENT OF VARIATION 14.7 (11.5-15.0); RED BLOOD CELL COUNT(AUTO) 4.23 MIL/uL (4.0-5.2); WHITE BLOOD COUNT (AUTO) 4.2 K/uL (4.3-11.0)
[2017-12-19 07:46] LABS: CREATININE 0.8 mg/dL (0.6-1.3); MAGNESIUM 2.1 mg/dL (1.8-2.4); PHOSPHORUS 3.7 mg/dL (2.5-4.9); POTASSIUM 4.2 mmol/L (3.5-5.1)
[2017-12-19 08:00] VITALS: BP 145/97
[2017-12-19] MEDS: OXYBUTYNIN CHLORIDE 5 MG TABLET PO SCH ×2 (08:31→16:49)
[2017-12-19] MEDS: FLUOXETINE HCL 20 MG CAPSULE PO SCH (08:31)
[2017-12-19] MEDS: oxyCODONE IR immediate release 5 MG PO SCH ×2 (08:31→16:49)
[2017-12-19] MEDS: MULTIVITAMINS,THERAGRAN 1 UDTAB TABLET PO SCH (08:32)
[2017-12-19] MEDS: ZINC SULFATE 220 MG CAPSULE PO SCH (08:32)
[2017-12-19] MEDS: FOLIC ACID 1 MG TABLET PO SCH (08:39)
[2017-12-19] MEDS: PROSOURCE / PROSTAT (PYXIS) 30 ML UDC PO SCH ×3 (09:00→16:49)
[2017-12-19] MEDS: LORAZEPAM 1 MG TABLET PO PRN ×2 (11:19→20:41)
[2017-12-19] MEDS: MORPHINE SULFATE INJ 4 MG/ML DISP.SYRIN IV PRN ×4 (12:07→23:36)
[2017-12-19 16:00] VITALS: BP 149/85
[2017-12-19 20:00] VITALS: BP 154/91
--- NOTE | 2017-12-19 20:00 | NUR ---
RECIEVED ALERT AND ORIENTATED AND VERBALLY ANGRY...SHE NEED MEDICATION AND PERCOCENT WAS GIVEN AND "I NEED MORPHINE" AND"I'M A BIG GIRL AND NEED MORE MEDICATION. WHEN EXPLAINNED TO HER SHE WOULD NEED TO WAIT DT SHE JUST RECIEVED PERCOCET TABLETS AND I EXPLAINED TO HER ABOUT THE NERVOUS SYSTEM AND WHAT COULD HAPPEN, SHE STATED NONE OF THAT WILL HAPPEN I' A BIG GIRL AND NEED MEDICATION I AM IN PAIN AND YOU ARE THE ONLY NURSE WHO WON'T GIVE ME MEDICATION WHEN I ASK FOR IT. SHE WANTED TO SPEAK TO THE CHARGE NURSE AND THE CHARGE NURSE WENT TO SEE HER AND EXPLAINED TO HER WQE CAN NOT ALTERNATE PO AND IV MEDICATIONS, THE MD HAS ALRDY OREDERED BREAK THRU MEDICATION ROUTINE. SHE IS NOT HAPPY WITH THIS, BUT WILL WAIT FOR HER MRPHINE BUT TO BRING IT REBA. WOUND VAC ON RIGHT LOWER LEG.
[2017-12-19] MEDS: GABAPENTIN 300 MG CAPSULE PO SCH (21:37)
[2017-12-19] MEDS: ZOLPIDEM TARTRATE 5 MG TABLET PO PRN (23:35)
[2017-12-20] MEDS: NYSTATIN TOP POWDER 15 GM BOTTLE TP SCH ×2 (05:07→16:55)
[2017-12-20] MEDS: IBUPROFEN 400 MG TABLET PO SCH ×3 (05:07→21:38)
--- NOTE | 2017-12-20 05:17 | NUR ---
ENDING NOTES: AT THE BEGINNING OF THE SHIFT SHE WAS ARGUMENTAIVE AND REQUISTING PAIN MEDICATION AND HER ATIVAN AND AMBIEN, PO ANALGESIC AND IV ANALGEESIC. I EXPLAIIN TO HER WE HAD TO WAIT BETWEEN GIVEN ADMINISTRATION TIMES, D/T MEDICATION WILL EFFECT HER BREATHING. SHE CONTINUES TO SAY "YOU ARE THE ONLY NURSE WHO WON'T GIVE ME WANT I WANT, AND WHAT IS ORDERED. CHARGE NURSE WAS BROUGHT IN TO TALK TO HER TO VALIDATE WHAT I HAD TOLD HER ABOUT TOO SOON GIVING HER MEDS , AND WE DON'T ALTERNATE ANALGESICS AND THE MD HAS ORDERED IN BETWEEN PO ANALGESIC. RIGHT THIGH DRESSING NOTED WITH SEROSINIOUS DRAINAGE GAUZE DRESSING INTACR LOWER LEG WITH PHILIP WRAP AND NOT UNDONE DRY AND CLEAN SHE SLEPT FROM MIDNIGHT ON SOUNDLY. RESP MONITORED
[2017-12-20] MEDS: IV NS 0.9% 1,000 ML IV PRN (05:37)
[2017-12-20] MEDS: MORPHINE SULFATE INJ 4 MG/ML DISP.SYRIN IV PRN ×5 (05:42→22:04)
[2017-12-20] MEDS: PIPERACILLIN /TAZOBACTAM 3.375 G in IV D5W 50 ML IV SCH ×3 (05:45→17:37)
--- NOTE | 2017-12-20 07:25 | NUR ---
MS RN INITIAL NOTES Report received. Patient received in bed, sleeping comfortably, easily aroused. No facial grimacing or moaning noted. Not in any type of distress. Wound vac in place. Dressing on right leg intact. Safety measures in place. Will continue to monitor and assess patient.
[2017-12-20 08:00] VITALS: BP 146/89
[2017-12-20] MEDS: ZINC SULFATE 220 MG CAPSULE PO SCH (08:23)
[2017-12-20] MEDS: FLUOXETINE HCL 20 MG CAPSULE PO SCH (08:23)
[2017-12-20] MEDS: OXYBUTYNIN CHLORIDE 5 MG TABLET PO SCH ×2 (08:24→16:53)
[2017-12-20] MEDS: MULTIVITAMINS,THERAGRAN 1 UDTAB TABLET PO SCH (08:24)
[2017-12-20] MEDS: FOLIC ACID 1 MG TABLET PO SCH (08:24)
[2017-12-20] MEDS: oxyCODONE IR immediate release 5 MG PO SCH ×2 (08:24→16:53)
--- NOTE | 2017-12-20 08:45 | NUR ---
MS HANNA NOTES Called [facility] for prostat, waiting for delivery Addendum: 12/20/17 at 1055 by CODEY DACOSTA RN Prostat/Prosource delivered and given to patient
[2017-12-20] MEDS ORDERED: ERGOCALCIFEROL (VITAMIN D 2) 50,000 UNIT CAPSULE PO SCH (09:00)
[2017-12-20] MEDS: LORAZEPAM 1 MG TABLET PO PRN ×2 (10:04→20:33)
[2017-12-20] MEDS: PROSOURCE / PROSTAT (PYXIS) 30 ML UDC PO SCH ×3 (10:54→16:54)
[2017-12-20 16:00] VITALS: BP 154/92
--- NOTE | 2017-12-20 19:30 | NUR ---
RN MS OPENING NOTES RECEIVED PATIENT IN BED AWAKE. ALERT AND ORIENTED X4. BREATHING EVEN AND UNLABORED. NO SOB NOTED - TOLERATING ROOM AIR. WITH COMPLAINTS OF PAIN AND DISCOMFORT ON RIGHT LEG 12/07. REQUESTED FOR PAIN MEDICATION. WILL GIVE PAIN MEDICATION ON NEXT SCHEDULED TIME - PATIENT VERBALIZED UNDERSTANDING. AFEBRILE. IV ACCESS INTACT AND PATENT WITH NS INFUSING AT 75ML/HR. ALL OTHER NEEDS ATTENDED TO. SAFETY MEASURES IN PLACE. CALL LIGHT WITHIN REACH. WILL CONTINUE TO MONITOR.
--- NOTE | 2017-12-20 19:38 | NUR ---
MS RN CLOSING NOTES Report given. Patient remained in bed, awake and verbally responsive. Alert and oriented x4. Complaints of pain ith help of pain mgmt. No SOB/labored breathing noted. Not in any type of distress. Afebrile. Discharge tomorrow per MD with portable wound vac to [facility]. Continue antibiotic treatment. All needs anticipated and met. Reinforced proper diet to patient; non-compliant. Bed in locked and lowest position with call light within reach. Endorsed to oncoming shift nurse. Addendum: 12/20/17 at 1943 by CODEY DACOSTA RN Patient had episode of IV fluids refusal.
[2017-12-20 20:00] VITALS: BP 140/82
[2017-12-20] MEDS: GABAPENTIN 300 MG CAPSULE PO SCH (21:38)
[2017-12-20] MEDS: ZOLPIDEM TARTRATE 5 MG TABLET PO PRN (22:03)
[2017-12-21] MEDS: MORPHINE SULFATE INJ 4 MG/ML DISP.SYRIN IV PRN ×3 (00:14→13:35)
[2017-12-21] MEDS: PIPERACILLIN /TAZOBACTAM 3.375 G in IV D5W 50 ML IV SCH ×2 (00:15→05:54)
[2017-12-21] MEDS: NYSTATIN TOP POWDER 15 GM BOTTLE TP SCH (04:18)
[2017-12-21] MEDS: IBUPROFEN 400 MG TABLET PO SCH ×2 (05:52→13:34)
[2017-12-21] MEDS: LORAZEPAM 1 MG TABLET PO PRN (06:42)
--- NOTE | 2017-12-21 06:51 | NUR ---
RN MS CLOSING NOTES PATIENT IN BED AWAKE. ALERT AND ORIENTED X4. BREATHING EVEN AND UNLABORED. NO SOB NOTED - TOLERATING ROOM AIR. NO ACUTE CHANGES THROUGHOUT SHIFT. STILL WITH COMPLAINTS OF PAIN ON RIGHT LEG - PAIN MEDICATION EFFECTIVE. AFEBRILE. IV ACCESS INTACT AND PATENT WITH NS INFUSING AT 75ML/HR. WOUND VAC INTACT AND DRAINING. ALL OTHER NEEDS ATTENDED TO. SAFETY MEASURES IN PLACE. CALL LIGHT WITHIN REACH. WILL ENDORSE TO ONCOMING NURSE FOR CONTINUITY OF CARE.
--- NOTE | 2017-12-21 07:20 | NUR ---
MS RN INITIAL NOTES Report received. Patient received in bed, sleeping comfortably, easily aroused. Denies any type of pain. No SOB/labored breathing noted. Not in any type of distress. Safety measures in place. Will continue to monitor and assess patient.
[2017-12-21 08:00] VITALS: BP 149/88
[2017-12-21] MEDS: OXYBUTYNIN CHLORIDE 5 MG TABLET PO SCH (08:35)
[2017-12-21] MEDS: oxyCODONE IR immediate release 5 MG PO SCH (08:35)
[2017-12-21] MEDS: FLUOXETINE HCL 20 MG CAPSULE PO SCH (08:35)
[2017-12-21] MEDS: MULTIVITAMINS,THERAGRAN 1 UDTAB TABLET PO SCH (08:35)
[2017-12-21] MEDS: ZINC SULFATE 220 MG CAPSULE PO SCH (08:36)
[2017-12-21] MEDS: PROSOURCE / PROSTAT (PYXIS) 30 ML UDC PO SCH ×2 (08:41→13:34)
[2017-12-21] MEDS: FOLIC ACID 1 MG TABLET PO SCH (08:41)
--- NOTE | 2017-12-21 09:40 | NUR ---
MS RN NOTES Dr. Syed at bedside to change dressing on graft site and assess patient. confirmed that patient is okay to be discharge.
--- NOTE | 2017-12-21 10:36 | NUR ---
MS RN NOTES Spoke to Dr. Amaral and confirmed clearance to discharge patient without wound vac BUT will be connected once patient arrived at [facility]. Left a voicemail to case mgmt
[2017-12-21] MEDS ORDERED: NYST15PO4 TP (11:06)
[2017-12-21] MEDS ORDERED: MULT-24 PO (11:06)
[2017-12-21] MEDS ORDERED: LORA1TAB PO (11:06)
[2017-12-21] MEDS ORDERED: SULF1TAB48 PO (11:45)
--- NOTE | 2017-12-21 13:21 | NUR ---
MS RN -DISCHARGE NOTES Called [facility] [phone] and gave report to JACQUES Turk All questions and concerns addressed.
--- NOTE | 2017-12-21 14:20 | NUR ---
MS LANG INTERPRETER NOTES Patient picked up by [place] to be transported to [facility] @1400. Patient is in stable condition. Afebrile. Discharge instructions given; patient verbalized understanding. Report given to Rosalee at [facility]. Patient complained of pain; pain mgmt given prior to discharge. Disconnected wound vac and secured on right thigh. Dressing intact. IV removed; cath tip intact with no bleeding noted. Pictures taken and placed in chart. Belongings are with patient; belongings form signed.
[2017-12-21] MEDS ORDERED: SULFAMETH/TRIMETH 800/160 MG 1 UDTAB TABLET PO SCH (21:00)
== END 2017-12-21 14:15 | DRG 902 ==
LOC: ER 10:03 → MED 12:18
PROVIDERS: ADMIT Student in an Organized Health Care Education/Training Program; ATTEND Student in an Organized Health Care Education/Training Program
PROC: 0HRKX74 Replacement of Right Lower Leg Skin with Autologous Tissue Substitute, Partial Thickness, External Approach (ICD-10-PCS; 2017-12-18)
PROC: 2W1QX6Z Compression of Right Lower Leg using Pressure Dressing (ICD-10-PCS; 2017-12-18)
PROC: 0JBN0ZZ Excision of Right Lower Leg Subcutaneous Tissue and Fascia, Open Approach (ICD-10-PCS; principal; 2017-12-18 07:30)
DX: T86.821 Skin graft (allograft) (autograft) failure (principal); M86.661 Other chronic osteomyelitis, right tibia and fibula; Z68.43 Body mass index [BMI] 50.0-59.9, adult; D68.59 Other primary thrombophilia; E46 Unspecified protein-calorie malnutrition; E44.1 Mild protein-calorie malnutrition; Y83.2 Surgical operation with anastomosis, bypass or graft as the cause of abnormal reaction of the patient, or of later complication, without mention of misadventure at the time of the procedure; Y92.129 Unspecified place in nursing home as the place of occurrence of the external cause; E11.69 Type 2 diabetes mellitus with other specified complication; I87.2 Venous insufficiency (chronic) (peripheral); G89.4 Chronic pain syndrome; E66.01 Morbid (severe) obesity due to excess calories; Z79.899 Other long term (current) drug therapy; M19.90 Unspecified osteoarthritis, unspecified site; F41.9 Anxiety disorder, unspecified; F32.9 Major depressive disorder, single episode, unspecified; L98.9 Disorder of the skin and subcutaneous tissue, unspecified; D63.8 Anemia in other chronic diseases classified elsewhere; Z72.0 Tobacco use; I87.8 Other specified disorders of veins; Z79.891 Long term (current) use of opiate analgesic; Z98.84 Bariatric surgery status; L30.4 Erythema intertrigo; J45.909 Unspecified asthma, uncomplicated
CPT/HCPCS: 36415; 71045-TC; 80048-TC; 83735-TC; 84100-TC; 84702-TC; 85025-TC; 85610-TC; 85730-TC; 86850-TC; 87081-TC; A4606; A6253; A6402; A6403; J1170; J1885; J2250; J2270; J2543; J2704; J3475; J3490; J7030; J7060; Z7610

== ENCOUNTER 2018-04-19 10:42 | Emergency (ER) | payer MEDICARE, OTHER ==
[~2018-04-19] VITALS: Ht 177.8 cm; Wt 165.1 kg
[~2018-04-19 10:42] MED LIST changes: +ACET-868 PO; +AMIN30LI4 PO; -ERGO500014 PO; -ESCI10TA PO; +HYDR-4384 PO; +LORA1TAB PO; -LORA2TAB PO; -MULT-15 PO; +MULT-24 PO; -NICO-760 TD; +NYST15PO4 TP; -NYST500P PO; +OXYC10TA49 PO; -OXYC20TA42 PO; -QUET25TA PO; -RISP0.253 PO; +SULF1TAB48 PO; -ZINC220C8 PO
--- NOTE | 2018-04-19 10:46 | NUR ---
PT BIB PRIVATE AMB FROM [facility] HOME DUE TO FEVER AND CONGESTION, PT IS AAOX4, NOT IN RESPIRATORY DISTRESS, V/S STABLE, KEPT RESTED AND COMFORTABLE.
--- NOTE | 2018-04-19 10:55 | NUR ---
SEEN AND EXAMINED BY DR. JOHNSON.
[2018-04-19] MEDS ORDERED: IV NS 0.9% 1,000 ML BAG IV ONE (11:00)
--- NOTE | 2018-04-19 11:20 | NUR ---
LABS DRAWNED AND SENT [facility]. AWAITING RESULTS.
[2018-04-19 11:31] LABS: CALCIUM, SERUM 7.9 mg/dL (8.5-10.1); CARBON DIOXIDE 22 mmol/L (21-32); CHLORIDE 107 mmol/L (98-107); CREATININE 0.8 mg/dL (0.6-1.3); GLUCOSE 117 mg/dL (74-106); POTASSIUM 3.8 mmol/L (3.5-5.1); SODIUM SERUM 138 mmol/L (136-145); UREA NITROGEN, BLOOD 13 mg/dL (7-18)
[2018-04-19 11:36] LABS: BASOPHILS % (AUTO) 0.2 % (0.0-2.0); EOSINOPHILS % (AUTO) 0.1 % (0.0-6.0); HEMATOCRIT 36 % (33-45); HEMOGLOBIN 11.9 g/dL (11.5-14.8); LYMPHOCYTES # (AUTO) 0.7 /CMM (0.8-4.8); LYMPHOCYTES % (AUTO) 5.1 % (20.0-44.0); MEAN CORPUSCULAR HGB CONC 33 g/dl (31.0-36.0); MEAN CORPUSCULAR VOLUME 93 fL (82-100); MONOCYTES # (AUTO) 0.7 /CMM (0.1-1.30); MONOCYTES % (AUTO) 4.9 % (2.0-12.0); NEUTROPHILS # (AUTO) 12.3 /CMM (1.8-8.9); NEUTROPHILS % (AUTO) 89.7 % (43.0-81.0); PLATELET COUNT (AUTO) 127 /CMM (150-450); RED BLOOD CELL COUNT(AUTO) 3.87 MIL/uL (4.0-5.2); WHITE BLOOD COUNT (AUTO) 13.8 K/uL (4.3-11.0)
[2018-04-19 11:37] LABS: ALANINE AMINOTRANSFERASE 22 U/L (12-78); ALBUMIN 2.8 g/dL (3.4-5.0); ALKALINE PHOSPHATASE 112 U/L (46-116); ASPARTATE AMINOTRANSFERASE 42 U/L (15-37); BILIRUBIN,DIRECT 0.3 mg/dL (0.0-0.2); TOTAL PROTEIN, SERUM 7.2 g/dL (6.4-8.2)
--- NOTE | 2018-04-19 12:03 | NUR ---
URINE SPECIMEN COLLECTED AND SENT TO LAB.
[2018-04-19 12:13] LABS: APPEARANCE,URINE Slightly Cloudy (CLEAR); BILIRUBIN,URINE SMALL (NEGATIVE); BLOOD, URINE Moderate Ery/uL (NEGATIVE); COLOR,URINE Dark (YELLOW); KETONES,URINE Negative (NEGATIVE); LEUKOCYTE ESTERASE ,URINE Small (NEGATIVE); NITRITE, URINE Positive (NEGATIVE); PROTEIN,URINE 100 mg/dl (NEGATIVE); UGLUCOSE Negative (NEGATIVE)
[2018-04-19 12:26] LABS: BACTERIA,URINE Many /HPF (None Seen); SQUAMOUS EPITHELIAL CELL,UR Few /HPF (None Seen)
[2018-04-19] MEDS ORDERED: CEFTRIAXONE 1GM BAG (ER ONLY) 100 ML IV ONE (12:45)
[2018-04-19] MEDS ORDERED: CEFTRIAXONE 1GM BAG (ER ONLY) 1 GM/50 ML PIGGYBACK IV ONE (13:00)
--- NOTE | 2018-04-19 13:14 | NUR ---
QUANG GONZALEZ [id number] TRIP#[id number]
--- NOTE | 2018-04-19 14:05 | NUR ---
IV removed. Catheter intact and site benign. Pressure and 4x4 applied to site. No bleeding noted. Patient discharged to home in stable condition. Written and verbal after care instructions given. Patient verbalizes understanding of instruction.
[2018-04-19 14:38] VITALS: BP 129/71
[2018-04-29] MEDS ORDERED: RXVAN XX (12:36)
== END 2018-04-19 14:41 ==
LOC: ER 10:47
DX: N39.0 Urinary tract infection, site not specified (principal); J45.909 Unspecified asthma, uncomplicated; E66.01 Morbid (severe) obesity due to excess calories; E11.9 Type 2 diabetes mellitus without complications; G89.4 Chronic pain syndrome; F29 Unspecified psychosis not due to a substance or known physiological condition; F41.9 Anxiety disorder, unspecified; F32.9 Major depressive disorder, single episode, unspecified; R94.31 Abnormal electrocardiogram [ECG] [EKG]; Z98.84 Bariatric surgery status; Z60.2 Problems related to living alone
CPT/HCPCS: 36415; 71045-TC; 80048-TC; 80076-TC; 81000-TC; 83605-TC; 84484-TC; 85025-TC; 85730-TC; 87040-TC; 87086-TC; 87186-TC; 87400; J0696; J7030

== ENCOUNTER 2018-04-24 13:30 | Inpatient (IN) | payer MEDICARE, OTHER ==
[~2018-04-24] VITALS: Ht 165.1 cm; Wt 149.7 kg
--- NOTE | 2018-04-24 14:06 | NUR ---
BIB private ambulance from [facility] for eval of chronic right lower extremity wound. WOUNDS ARE CLEAN AND DRY, NO ODOR/DRAINAGE. PT IS AOX4, ABLE TO STAND, VSS, RR EVEN AND UNLABORED. PAIN LEVEL 10/10. DENIES SOB, DIZZINESS, WEAKNESS, N/V/D. NO ACUTE DISTRESS NOTED. READY FOR EVAL.
[2018-04-24] MEDS ORDERED: IPRA3AMP23 IH (14:29)
[2018-04-24] MEDS ORDERED: LORA0.5T PO (14:29)
[2018-04-24] MEDS ORDERED: CEPH-570 PO (14:29)
[2018-04-24] MEDS ORDERED: MULT-447 PO (14:29)
[2018-04-24] MEDS ORDERED: FLUO20CA36 PO (14:29)
[2018-04-24] MEDS ORDERED: HYDROMORPHONE INJ 2 MG/ML DISP.SYRIN IV ONE (15:00)
[2018-04-24] MEDS ORDERED: IV NS 0.9% 1,000 ML BAG IV ONE (15:00)
[2018-04-24] MEDS ORDERED: ONDANSETRON HCL/PF 4 MG/2 ML VIAL IVP ONE (15:00)
[2018-04-24 15:27] LABS: BASOPHILS # (AUTO) 0.1 /CMM (0.0-0.2); EOSINOPHILS % (AUTO) 2.1 % (0.0-6.0); HEMATOCRIT 31 % (33-45); HEMOGLOBIN 10.3 g/dL (11.5-14.8); LYMPHOCYTES # (AUTO) 1.4 /CMM (0.8-4.8); LYMPHOCYTES % (AUTO) 25.5 % (20.0-44.0); MEAN CORPUSCULAR HGB CONC 34 g/dl (31.0-36.0); MEAN CORPUSCULAR VOLUME 91 fL (82-100); MONOCYTES # (AUTO) 0.9 /CMM (0.1-1.30); MONOCYTES % (AUTO) 16.8 % (2.0-12.0); NEUTROPHILS % (AUTO) 54.6 % (43.0-81.0); PLATELET COUNT (AUTO) 152 /CMM (150-450); RED BLOOD CELL COUNT(AUTO) 3.37 MIL/uL (4.0-5.2); WHITE BLOOD COUNT (AUTO) 5.4 K/uL (4.3-11.0)
[2018-04-24 15:44] LABS: ALBUMIN 2.5 g/dL (3.4-5.0); BILIRUBIN,DIRECT 0.1 mg/dL (0.0-0.2); BILIRUBIN,TOTAL 0.6 mg/dL (0.2-1.0); CALCIUM, SERUM 7.9 mg/dL (8.5-10.1); CREATININE 0.9 mg/dL (0.6-1.3); POTASSIUM 4.5 mmol/L (3.5-5.1); TOTAL PROTEIN, SERUM 7.1 g/dL (6.4-8.2)
[2018-04-24] MEDS ORDERED: ONDANSETRON HCL/PF 4 MG/2 ML VIAL ONE (15:59)
[2018-04-24] MEDS ORDERED: HYDROMORPHONE INJ 0.5 MG/0.5 ML SYRINGE ONE (15:59)
--- NOTE | 2018-04-24 16:13 | NUR ---
Patient is resting comfortably in bed with eyes closed. Easily aroused. VSS
--- NOTE | 2018-04-24 16:45 | NUR ---
PAGED REYES OMER
[2018-04-24 16:49] LABS: BAND % (MANUAL) 1 % (0.0-5.0); LYMPHOCYTES % (MANUAL) 31 % (16-48); MONOCYTES % (MANUAL) 17 % (0-11.0); NEUTROPHILS % (MANUAL) 49 (42-76); REACTIVE LYMPHOCYTES 2 % (0-0)
[2018-04-24] MEDS ORDERED: PIPERACILLIN /TAZOBACTAM 3.375 G in IV D5W 50 ML IV ONE (17:00)
[2018-04-24] MEDS ORDERED: VANCOMYCIN 1 GM in IV D5W 250 ML IV ONE (17:00)
--- NOTE | 2018-04-24 17:01 | NUR ---
PAGED [facility] FOR PANEL - BUSINESS ECONOMIST SHEET CUTTING OPERATOR JONATHAN COOK
[2018-04-24] MEDS ORDERED: PIPERACILLIN /TAZOBACTAM 3.375 G VIAL IV ONE (17:04)
[2018-04-24] MEDS ORDERED: VANCOMYCIN 1 GM VIAL ONE (17:04)
[2018-04-24] MEDS ORDERED: IBUPROFEN 800 MG TABLET PO PRN (17:30)
--- NOTE | 2018-04-24 17:34 | NUR ---
ASSIST PT TO CHANGE WET ADULT DIAPER AND BED SHEETS. MADE COMFORTABLE WITH WARM BLANKETS
--- NOTE | 2018-04-24 18:22 | NUR ---
GAVE PT SANDWICH, OK PER MINOO SUNG
[2018-04-24] MEDS ORDERED: MAGNESIUM HYDROXIDE 30 ML UDC PO PRN (18:30)
[2018-04-24] MEDS ORDERED: MAG HYDROX/AL HYDROX/SIMETH 30 ML UDC PO PRN (18:30)
[2018-04-24] MEDS ORDERED: ALBUTEROL FS 2.5 MG/0.5 ML VIAL.NEB NEB PRN (18:30)
[2018-04-24] MEDS ORDERED: ONDANSETRON HCL/PF 4 MG/2 ML VIAL IVP PRN (18:30)
[2018-04-24] MEDS ORDERED: ACETAMINOPHEN 325 MG TABLET PO PRN (18:30)
[2018-04-24] MEDS ORDERED: Z GUARD REMEDY 2 OZ OINT TP PRN (18:30)
--- NOTE | 2018-04-24 18:38 | NUR ---
REPORT GIVEN TO JACQUES LEE FOR 311-1 MS
--- NOTE | 2018-04-24 19:28 | NUR ---
PT TRANSFERRED TO FLOOR
--- NOTE | 2018-04-24 19:30 | NUR ---
MS MEDICINE MAN NOTES RECEIVED FROM ER PER YULISSA THIS 43 Y.O FEMALE FROM [facility],WITH CHIEF COMPLAINTS OF PAIN ON RIGHT LOWER LEG, A/O X3-4,BREATHING NORMAL.NOTED DRY OPEN WOUND ON RIGHT LOWER LEG LATERAL AND DISTAL,NO DISCHARGES NOTED,NO FOUL SMELL,WITH REDNESS AND SWELLING,ELEVATED ON PILLOWS.WITH SALINE LOC RIGHT HAND #20 INTACT AND PATENT.OBESE ABLE TO TRANSFER FROM BED TO CHAIR.NOTED REDNESS ON LEFT ABDOMINAL FOLD,PER PATIENT ITS BURNING LIKE SENSATION.WITH FOUL SMELL NOTED.CLEANSE WITH SOAP AND WATER AND APPLIED REMEDY FOR SKIN MANAGEMENT.FALL PRECAUTION OBSERVED.BED ON LOWEST POSITION AND LOCKED.CALL LIGHT IN REACH,NEEDS ANTICIPATED.
[2018-04-24 20:00] VITALS: BP 147/85
[2018-04-24] MEDS: CEPHALEXIN MONOHYDRATE 500 MG CAPSULE PO SCH (20:22)
[2018-04-24] MEDS: ENOXAPARIN SODIUM 40 MG/0.4 ML DISP.SYRIN SQ SCH (20:24)
--- NOTE | 2018-04-24 20:25 | NUR ---
RESOURCE RN NOTES: ADMISSION DOCUMENTATION COMPLETED, PT WAS INTERVIEWED, PT IS A/O X3, FROM [facility], PAPER WORKS FROM SNF RECEIVED AND ATTACHED TO CHART, VACCINATION STATUS DOCUMENTATION FROM FACILITY RECEIVED, PT HAS POLST-FULL CODE, AWARE. ASSIGNED RN TO COMPLETE THE INITIAL PHYSICAL ASSESSMENT PART.
[2018-04-24] MEDS: HYDROMORPHONE INJ 2 MG/ML DISP.SYRIN IV PRN (20:36)
--- NOTE | 2018-04-24 20:36 | NUR ---
MS RN NOTES PAIN MANAGEMENT C/OPAIN ON RIGHT LOWER LEG 9/10 ON PAIN SCALE,MEDICATED WITH DILAUDID 1MG IV ORDERED FOR SEVERE PAIN
[2018-04-24] MEDS: GABAPENTIN 300 MG CAPSULE PO SCH (22:00)
[2018-04-24] MEDS: ZOLPIDEM TARTRATE 5 MG TABLET PO PRN (22:28)
--- NOTE | 2018-04-24 22:28 | NUR ---
MS RN NOTES C/O INSOMNIA,AMBIEN 10MG PO GIVEN ORDERED
[2018-04-25] MEDS: PIPERACILLIN /TAZOBACTAM 3.375 G in IV D5W 50 ML IV SCH ×4 (00:03→18:11)
[2018-04-25] MEDS: CEPHALEXIN MONOHYDRATE 500 MG CAPSULE PO SCH ×4 (01:12→18:05)
[2018-04-25] MEDS: VANCOMYCIN 1 GM in IV D5W 250ml IV SCH ×2 (06:00→18:47)
--- NOTE | 2018-04-25 06:00 | NUR ---
MS RN NOTES WOUND CARE INITIATED ON RIGHT FOOT,CLEANSE WITH NS,PAT DRY AND APPLIED XEROFORM,COVERED WITH ABD PAD AND SECURED WITH KERLIX
[2018-04-25] MEDS: HYDROMORPHONE INJ 2 MG/ML DISP.SYRIN IV PRN ×3 (06:15→18:07)
--- NOTE | 2018-04-25 06:15 | NUR ---
MS RN NOTES PAIN MANAGEMENT C/O PAIN 9/10 ON RIGHT LOWER LEG,DILAUDID 1MG IV GIVEN PER PATIENT REQUEST.
--- NOTE | 2018-04-25 06:40 | NUR ---
MS RN NOTES ON BED SLEEPY DUE TO AMBIEN 10MG GIVEN FOR SLEEP.IV TO TKO ON RIGHT HAND.CALL LIGHT IN REACH,NEEDS ATTENDED.WILL ENDORSE TO DAY NURSE FOR COLLINS.
--- NOTE | 2018-04-25 07:00 | NUR ---
MS RN NOTES PATIENT IN BED ALERT ORIENTED X 3. NO ACUTE DISTRESS NOTED. BREATHING UNLABORED. NO SOB NOTED. IV ACCESS PATENT AND INTACT, NO REDNESS OR SWELLING NOTED. SAFETY MEASURES IN PLACE. CALL LIGHT WITHIN REACH. WILL CONTINUE TO MONITOR ACCORDINGLY.
[2018-04-25 07:59] LABS: BASOPHILS % (AUTO) 0.7 % (0.0-2.0); EOSINOPHILS % (AUTO) 1.7 % (0.0-6.0); HEMATOCRIT 31 % (33-45); HEMOGLOBIN 10.6 g/dL (11.5-14.8); LYMPHOCYTES # (AUTO) 1.3 /CMM (0.8-4.8); LYMPHOCYTES % (AUTO) 25.9 % (20.0-44.0); MEAN CORPUSCULAR HGB CONC 34 g/dl (31.0-36.0); MEAN CORPUSCULAR VOLUME 91 fL (82-100); MONOCYTES # (AUTO) 0.6 /CMM (0.1-1.30); MONOCYTES % (AUTO) 12.2 % (2.0-12.0); NEUTROPHILS # (AUTO) 2.9 /CMM (1.8-8.9); NEUTROPHILS % (AUTO) 59.5 % (43.0-81.0); PLATELET COUNT (AUTO) 151 /CMM (150-450); RED BLOOD CELL COUNT(AUTO) 3.46 MIL/uL (4.0-5.2); WHITE BLOOD COUNT (AUTO) 4.8 K/uL (4.3-11.0)
[2018-04-25 08:00] VITALS: BP 129/93
[2018-04-25 08:18] LABS: ALBUMIN 2.4 g/dL (3.4-5.0); BILIRUBIN,TOTAL 0.6 mg/dL (0.2-1.0); CALCIUM, SERUM 7.9 mg/dL (8.5-10.1); CREATININE 0.8 mg/dL (0.6-1.3); MAGNESIUM 1.7 mg/dL (1.8-2.4); POTASSIUM 3.8 mmol/L (3.5-5.1); TOTAL PROTEIN, SERUM 6.9 g/dL (6.4-8.2)
[2018-04-25] MEDS: FERROUS SULFATE (325 MG) 325 MG/TAB TABLET PO SCH ×3 (08:42→17:47)
[2018-04-25] MEDS: CHOLECALCIFEROL 1,000 UNIT TABLET (VIT D3) PO SCH (08:42)
[2018-04-25] MEDS: NICOTINE PATCH (14MG) 14 MG PATCH.TD24 TD SCH (08:42)
[2018-04-25] MEDS: MULTIVIT W/MINERALS 1 TAB TABLET PO SCH (08:42)
[2018-04-25] MEDS: FOLIC ACID 1 MG TABLET PO SCH (08:42)
[2018-04-25] MEDS: PANTOPRAZOLE 40 MG VIAL IV SCH (08:42)
[2018-04-25] MEDS: FLUOXETINE HCL 20 MG CAPSULE PO SCH (08:43)
[2018-04-25] MEDS: OXYBUTYNIN CHLORIDE 5 MG TABLET PO SCH ×2 (08:43→17:47)
[2018-04-25] MEDS: Magnesium 1GM/D5W 100ML PREMIX 100 ML IV SCH ×2 (09:55→11:07)
[2018-04-25] MEDS ORDERED: FEE PK DOSING 1 MIN EA MC ONE (11:35)
[2018-04-25 16:00] VITALS: BP 125/86
[2018-04-25] MEDS: MICONAZOLE NITRATE 2% CREAM 1 EA TUBE TP SCH (17:47)
--- NOTE | 2018-04-25 19:00 | NUR ---
MS RN NOTES PATIENT IN BED ALERT ORIENTED X 3. NO ACUTE DISTRESS NOTED. BREATHING UNLABORED. NO SOB NOTED. IV ACCESS PATENT AND INTACT, NO REDNESS OR SWELLING NOTED. DUE MEDICATIONS GIVEN, NO ASE NOTED. NEEDS ATTENDED AND ANTICIPATED. KEPT CLEAN DRY AND COMFORTABLE.SAFETY MEASURES IN PLACE. CALL LIGHT WITHIN REACH. ENDORSED TO NIGHT NURSE FOR CONTINUITY OF CARE.
--- NOTE | 2018-04-25 19:05 | NUR ---
RN MS OPENING NOTES RECEIVED PATIENT IN BED AWAKE ALERT AND ORIENTED X 3, RESPIRATIONS EVEN AND UNLABORED WITH EQUAL RISE AND FALL OF CHEST, IV SITE TO RIGHT HAND #20G INTACT AND PATENT, NO REDNESS ,NO INFILTRATION PRESENT , ORIENTED TO STAFF AND CALL LIGHT AND KEPT WITHIN REACH, SAFETY PRECAUTIONS IN PLACE, LOW BED AND LOCKED, BED ALARM IN PLACE, FLUIDS OFFERED , MADE PATIENT AWARE OF THURSDAY PICTURES STATED" ILL THINK ABOUT IT." EXPLAINED RISK AND BENEFITS. ALL NEEDS ATTENDED AT THIS TIME, WILL CONTINUE TO MONITOR.
[2018-04-25] MEDS: HYDROCODONE/APAP 5/325MG 1 EACH TABLET PO PRN (19:53)
--- NOTE | 2018-04-25 19:53 | NUR ---
RN MS NOTES PATIENT COMPLAINT OF PAIN TO LOWER LEGS 11/06 REQUESTING FOR PAIN MEDICATION NORCO PRN 5/325MG OFFERED PATIENT AGREED VS WNL 151/97,21,67,97%RA NORCO PRN GIVEN ORDERED WILL CONTINUE TO MONITOR EFFECTIVENESS.
[2018-04-25 20:00] VITALS: BP 151/97
[2018-04-25 20:34] VITALS: BP 151/97
[2018-04-25] MEDS: GABAPENTIN 300 MG CAPSULE PO SCH (21:16)
[2018-04-25] MEDS: ENOXAPARIN SODIUM 40 MG/0.4 ML DISP.SYRIN SQ SCH (21:17)
[2018-04-25] MEDS: ZOLPIDEM TARTRATE 5 MG TABLET PO PRN (21:18)
--- NOTE | 2018-04-25 21:18 | NUR ---
RN MS NOTES PATIENT REQUESTING FOR AMBIEN STATES " I JUST WANT TO SLEEP!" SANTOSH PRN ORDERED GIVEN WILL CONTINUE TO MONITOR FOR EFFECTIVENESS.
--- NOTE | 2018-04-26 00:10 | NUR ---
RN MS NOTES ASKED PATIENT IF OKAY TO TAKE WOUND PHOTOS AND PROVIDE DRESSING CHANGES PATIENT REFUSED X3 STATES " NO I DONT TOO , NO DRESSINGS, NO PICTURES I WANT TO REST." ASKED PATIENT IS ABLE TO ASSESS SACRAL REFUSED. PATIENT ONLY ALLOWED TO TAKE PICTURES OF GROIN RIGHT THIGH AND RIGHT ARM BRUISE.
[2018-04-26] MEDS: CEPHALEXIN MONOHYDRATE 500 MG CAPSULE PO SCH ×4 (00:21→18:00)
[2018-04-26] MEDS: PIPERACILLIN /TAZOBACTAM 3.375 G in IV D5W 50 ML IV SCH ×4 (00:22→20:12)
[2018-04-26] MEDS: HYDROMORPHONE INJ 2 MG/ML DISP.SYRIN IV PRN ×6 (00:40→22:34)
--- NOTE | 2018-04-26 00:40 | NUR ---
RN MS NOTES PATIENT COMPLAINING OF PAIN TO LEGS 12/07 REQUESTING FOR DILAUDID. VS TAKEN, WNL 147/87,69,95%RA,18 DILAUDID PRN ORDERED GIVEN 1MG/0.5ML 1MG/0.5ML WASTED WITH ANOTHER RN WILL CONTINUE TO MONITOR FOR EFFECTIVENESS
--- NOTE | 2018-04-26 06:18 | NUR ---
RN MS NOTES PATIENT COMPLAINT OF PAIN TO BOTH LOWER LEGS 12/07 REQUESTING FOR DILAUDID VS, WNL PRN GIVEN ORDERED 1MG/0.5ML 1MG/0.5ML WASTED WITH ANOTHER RN. WILL CONTINUE TO MONITOR FOR EFFECTIVENESS
[2018-04-26 06:50] LABS: CALCIUM, SERUM 8.2 mg/dL (8.5-10.1); CREATININE 0.8 mg/dL (0.6-1.3); MAGNESIUM 1.7 mg/dL (1.8-2.4); POTASSIUM 3.5 mmol/L (3.5-5.1)
[2018-04-26 06:51] LABS: BASOPHILS % (AUTO) 0.6 % (0.0-2.0); EOSINOPHILS % (AUTO) 3.8 % (0.0-6.0); HEMATOCRIT 33 % (33-45); HEMOGLOBIN 11.1 g/dL (11.5-14.8); LYMPHOCYTES # (AUTO) 1.3 /CMM (0.8-4.8); LYMPHOCYTES % (AUTO) 29.1 % (20.0-44.0); MEAN CORPUSCULAR HGB CONC 34 g/dl (31.0-36.0); MEAN CORPUSCULAR VOLUME 90 fL (82-100); MONOCYTES # (AUTO) 0.5 /CMM (0.1-1.30); MONOCYTES % (AUTO) 11.4 % (2.0-12.0); NEUTROPHILS # (AUTO) 2.5 /CMM (1.8-8.9); NEUTROPHILS % (AUTO) 55.1 % (43.0-81.0); PLATELET COUNT (AUTO) 167 /CMM (150-450); RED BLOOD CELL COUNT(AUTO) 3.68 MIL/uL (4.0-5.2); WHITE BLOOD COUNT (AUTO) 4.6 K/uL (4.3-11.0)
[2018-04-26] MEDS: VANCOMYCIN 1 GM in IV D5W 250ml IV SCH (07:13)
--- NOTE | 2018-04-26 07:20 | NUR ---
MS RN OPENING NOTE RECEIVED PATIENT IN BED. SLEEPING. EASILY AROUSED WITH VERBAL STIMULI. ORIENTED X3. ON ROOM AIR TOLERATING WELL, IN NO APPARENT DISTRESS OR DISCOMFORT AT THIS TIME. RESPIRATIONS EVEN AND UNLABORED. DENIES PAIN AND SOB. PATIENT IS ABLE TO COMMUNICATE NEEDS. RIGHT HAND 20G IVC, SL, PATENT AND INTACT. PATIENT KEPT CLEAN AND COMFORTABLE, ALL NEEDS ATTENDED, SAFETY MEASURES IN PLACE, BED IN LOW LOCKED POSITION, SIDE RAILS UP X2, CALL LIGHT WITHIN EASY REACH. WILL CONTINUE TO MONITOR.
--- NOTE | 2018-04-26 07:25 | NUR ---
RN MS CLOSING NOTES PATIENT IN BED AWAKE ALERT AND ORIENTED X 3, RESPIRATIONS EVEN AND UNLABORED WITH EQUAL RISE AND FALL OF CHEST, IV SITE TO RIGHT HAND #20G INTACT AND PATENT, NO REDNESS ,NO INFILTRATION PRESENT , CALL LIGHT AND KEPT WITHIN REACH, SAFETY PRECAUTIONS IN PLACE, LOW BED AND LOCKED, BED ALARM IN PLACE, FLUIDS OFFERED , THURSDAY PICTURES REFUSED, EXPLAINED RISK AND BENEFITS. ALL NEEDS ATTENDED AT THIS TIME, WILL CONTINUE TO MONITOR. UPON CHANGING PATIENT NOTED WITH BLOOD CLOT FROM VAGINAL AREA. PER PATIENT SHE ALREADY HAD HER PERIOD THIS MONTH. NO COMPLAINT OF PAIN NO DISTRESS NO ACTIVE BLEEDING PRESENT CALLED AND SPOKE TO WITH NO NEW ORDERS AT THIS TIME, WILL ENDORSE TO NEXT SHIFT. MADE MD AWARE H&H LEVEL PATIENT REMAINS IN STABLE CONDITIONS.
[2018-04-26 08:00] VITALS: BP 143/89
[2018-04-26] MEDS: PANTOPRAZOLE 40 MG VIAL IV SCH (08:59)
[2018-04-26] MEDS: NICOTINE PATCH (14MG) 14 MG PATCH.TD24 TD SCH (09:00)
[2018-04-26] MEDS: FLUOXETINE HCL 20 MG CAPSULE PO SCH (09:00)
[2018-04-26] MEDS: MULTIVIT W/MINERALS 1 TAB TABLET PO SCH (09:00)
[2018-04-26] MEDS: CHOLECALCIFEROL 1,000 UNIT TABLET (VIT D3) PO SCH (09:00)
[2018-04-26] MEDS: FERROUS SULFATE (325 MG) 325 MG/TAB TABLET PO SCH ×3 (09:00→16:47)
[2018-04-26] MEDS: FOLIC ACID 1 MG TABLET PO SCH (09:00)
[2018-04-26] MEDS: MICONAZOLE NITRATE 2% CREAM 1 EA TUBE TP SCH ×2 (09:00→18:35)
[2018-04-26] MEDS: OXYBUTYNIN CHLORIDE 5 MG TABLET PO SCH ×2 (09:00→16:47)
[2018-04-26] MEDS: HYDROCODONE/APAP 5/325MG 1 EACH TABLET PO PRN ×3 (09:17→20:11)
[2018-04-26] MEDS: Magnesium 1GM/D5W 100ML PREMIX 100 ML IV SCH ×2 (10:33→14:28)
--- NOTE | 2018-04-26 11:00 | NUR ---
MEDICATION MICONAZOLE NITRATE IS ABSENT FROM DEPARTMENT. REQUESTED NEW ONCE FROM PHARMACY, SPOKE TO LY, AWAITING MEDICATION DELIVERY. Addendum: 04/26/18 at 1658 by BRETT SILVER RN ROSA
--- NOTE | 2018-04-26 12:00 | NUR ---
NOTED PATIENT'S IV INFILTRATED ON RIGHT HAND. REMOVED IVC, APPLIED ICE PACK, INSTRUCTED TO ELEVATE THE EXTREMITY. ATTEMPTED TO OBTAIN NEW IV SITE, UNSUCCESSFUL. PATIENT IS A VERY HARD STICK. REPORTED TO JONATHAN ANDREWS, HOSPITALIST. RECEIVED ORDER TO OBTAIN MIDLINE FOR THE PATIENT. INSTRUCTIONAL SPECIALIST CONTACTED, MIDLINE NURSE CONTACTED. AWAITING PLACEMENT.
[2018-04-26] MEDS: NYSTATIN TOP POWDER 15 GM BOTTLE TP SCH ×2 (12:22→23:30)
--- NOTE | 2018-04-26 14:00 | NUR ---
PATIENT'S IV MEDICATIONS WERE ADMINISTERED LATE DUE TO NO PATENT IV SITE PRESENT. MEDICATIONS WERE ADMINISTERED AFTER MIDLINE PLACEMENT.
[2018-04-26 16:00] VITALS: BP 136/84
--- NOTE | 2018-04-26 16:49 | NUR ---
CALLED PHARMACY AGAIN TO OBTAIN MICONAZOLE FOR PATIENT. AWAITING DELIVERY AT THIS TIME.
--- NOTE | 2018-04-26 17:15 | NUR ---
MS BIAZZI NITRATOR OPERATOR NOTE PATIENT IS IN BED, ALERT ORIENTED X4. ON ROOM AIR, TOLERATING WELL. IN NO APPARENT DISTRESS OR DISCOMFORT AT THIS TIME. RESPIRATIONS EVEN AND UNLABORED. PATIENT IS STABLE, VITAL SIGNS STABLE. ALL NEEDS ATTENDED, ORDERS RENDERED. REFUSED SKIN CARE PRIOR TO TRANSFER. DUE MEDICATIONS GIVE. PATIENT REFUSED PICTURES OF THE SKIN. SAFETY MEASURES IN PLACE. PATIENT IS BEING TRANSFERRED TO MS 2 ROOM 202. REPORT GIVEN TO ALVINO HANNA FOR COLLINS.
[2018-04-26] MEDS: VANCOMYCIN 1.25 GM in IV D5W 500 ML IV SCH (17:37)
[2018-04-26 18:00] VITALS: BP 129/80
--- NOTE | 2018-04-26 18:00 | NUR ---
PT RECEIVED A&0X4, TOLERATING ROOM AIR WITHOUT DISTRESS, PT REPORTS 6/10 PAIN TO R LE. PT DEMANDING PRN ANALGESIA BE ON TIME AND IS STAND-OFFISH/UNFRIENDLY TOWARDS STAFF. PT WITH DRESSING CLEAN AND INTACT AND ENDORSED TO RE-DO DRESSING POST VENOUS STUDY. PT WITH BEL MIDLINE INTACT AND IV AB COMMENCED PER RX. PT REFUSING TOPICAL CREAM AT THIS TIME. PT BED IN LOWEST LOCKED POSITION WITH HANDRAILSX3 AND CALL BE WITHIN REACH. PT BRIEFED ON LANGE AND AFTERNOON POC AND IS WITHOUT COMPLAINT AT THIS TIME, WILL ENDORSE TO NIGHT NURSE AT BEDSIDE FOR COLLINS.
--- NOTE | 2018-04-26 19:30 | NUR ---
MSRN FULLY AWAKE, INCONTINENT HS CARE STARTED. KEPT COMFORTABLE. REFUSED ANY CREAM FOR NOW, STATED WILL CALL FOR PAIN MED IN FEW HRS. PAIN MGT REVIEWED WITH PATIENT WELL UNDERSTOOD. TO CONTINUE.
--- NOTE | 2018-04-26 20:10 | NUR ---
MSRN VERBALIZES HEADACHE, NORCO 1 TAB PO ADMINISTERED.
--- NOTE | 2018-04-26 20:30 | NUR ---
MSRN DOPPLER OF RIGHT LOWER EXTREMITIES ON PROGRESS.
[2018-04-26 20:38] VITALS: BP 146/88
[2018-04-26] MEDS: ENOXAPARIN SODIUM 40 MG/0.4 ML DISP.SYRIN SQ SCH (21:00)
--- NOTE | 2018-04-26 21:00 | NUR ---
MSRPola LOVENOX HELD, REFUSED BY PATIENT. PER REPORT HAD VAGINAL BLEEDING THIS MORNING. NO ACTIVE BLEEDING AT THIS TIME. MULTIPLE NEEDS ATTENDED.
[2018-04-26] MEDS: GABAPENTIN 300 MG CAPSULE PO SCH (21:03)
[2018-04-26] MEDS: ZOLPIDEM TARTRATE 5 MG TABLET PO PRN (21:04)
--- NOTE | 2018-04-26 22:39 | NUR ---
MSRN VERBALIZES BILATERAL LEG PAIN , DILAUDED 1MG IVP GIVEN SLOWLY. RIGHT LEG DRESSING DONE, ELEVATED ON PILLOWS.
[2018-04-27] MEDS: CEPHALEXIN MONOHYDRATE 500 MG CAPSULE PO SCH ×5 (00:13→23:52)
[2018-04-27] MEDS: PIPERACILLIN /TAZOBACTAM 3.375 G in IV D5W 50 ML IV SCH ×5 (00:13→23:51)
--- NOTE | 2018-04-27 02:30 | NUR ---
MSRN DILAUDED 1MG IVP ADMINISTERED FOR RIGHT LOWER LEG PAIN. KEPT ELEVATED ON PILLOWS.
[2018-04-27] MEDS: HYDROMORPHONE INJ 2 MG/ML DISP.SYRIN IV PRN ×6 (02:38→22:44)
[2018-04-27 06:34] LABS: BASOPHILS % (AUTO) 0.7 % (0.0-2.0); HEMATOCRIT 33 % (33-45); HEMOGLOBIN 11.1 g/dL (11.5-14.8); LYMPHOCYTES # (AUTO) 1.3 /CMM (0.8-4.8); LYMPHOCYTES % (AUTO) 23.6 % (20.0-44.0); MEAN CORPUSCULAR HGB CONC 34 g/dl (31.0-36.0); MEAN CORPUSCULAR VOLUME 91 fL (82-100); MONOCYTES # (AUTO) 0.6 /CMM (0.1-1.30); MONOCYTES % (AUTO) 10.7 % (2.0-12.0); NEUTROPHILS # (AUTO) 3.3 /CMM (1.8-8.9); PLATELET COUNT (AUTO) 169 /CMM (150-450); RED BLOOD CELL COUNT(AUTO) 3.64 MIL/uL (4.0-5.2); WHITE BLOOD COUNT (AUTO) 5.4 K/uL (4.3-11.0)
[2018-04-27 06:37] LABS: MAGNESIUM 1.9 mg/dL (1.8-2.4); POTASSIUM 3.3 mmol/L (3.5-5.1)
[2018-04-27] MEDS: VANCOMYCIN 1.25 GM in IV D5W 500 ML IV SCH ×2 (06:49→18:00)
[2018-04-27] MEDS: NYSTATIN TOP POWDER 15 GM BOTTLE TP SCH ×2 (06:52→23:51)
--- NOTE | 2018-04-27 07:42 | NUR ---
MS RN OPENING NOTES RECEIVED PATIENT IN STABLE CONDITION. IN NO APPARENT DISTRESS. BEDSIDE RAILS ARE UPX2. BED IS LOCKED AND LOWERED. CALL LIGHT IS WITHIN REACH. IV LINE IS INTACT AND PATENT. WILL CONTINUE TO MONITOR PATIENT.
--- NOTE | 2018-04-27 07:46 | NUR ---
WOUND CARE CONSULT WOUND CARE RECEIVED CONSULT FOR RLE CELLULITIS AND NO HEALING WOUNDS. WOUND CARE WILL DEFER CONSULT TO PLASTIC SURGICAL TEAM WELL DR EDOUARD DPChin FOR LOWER EXTREMITY WOUNDS THEY ARE BOTH FOLLOWING THIS PATIENT. PATIENT WITH MAY AT 17, ALL PRESSURE ULCER PREVENTION MEASURES ARE NOTED TO BE IN PLACE. WILL SEE PRN.
[2018-04-27 08:00] VITALS: BP 123/74
[2018-04-27] MEDS: OXYBUTYNIN CHLORIDE 5 MG TABLET PO SCH ×2 (08:36→16:16)
[2018-04-27] MEDS: MULTIVIT W/MINERALS 1 TAB TABLET PO SCH (08:36)
[2018-04-27] MEDS: FOLIC ACID 1 MG TABLET PO SCH (08:36)
[2018-04-27] MEDS: PANTOPRAZOLE 40 MG VIAL IV SCH (08:36)
[2018-04-27] MEDS: CHOLECALCIFEROL 1,000 UNIT TABLET (VIT D3) PO SCH (08:36)
[2018-04-27] MEDS: FERROUS SULFATE (325 MG) 325 MG/TAB TABLET PO SCH ×3 (08:36→16:16)
[2018-04-27] MEDS: DAKINS QUARTER STRENGTH (0.125%) 480 ML BOTTLE TOP SCH (08:37)
[2018-04-27] MEDS: NICOTINE PATCH (14MG) 14 MG PATCH.TD24 TD SCH (08:37)
[2018-04-27] MEDS: MICONAZOLE NITRATE 2% CREAM 1 EA TUBE TP SCH ×2 (08:37→16:17)
[2018-04-27] MEDS: FLUOXETINE HCL 20 MG CAPSULE PO SCH (09:13)
[2018-04-27] MEDS ORDERED: POTASSIUM CHLORIDE 20 MEQ TAB.PRT.SR PO SCH (09:30)
[2018-04-27] MEDS: LORAZEPAM 0.5 MG TABLET PO PRN (13:18)
[2018-04-27 16:00] VITALS: BP 125/78
[2018-04-27] MEDS: HYDROCODONE/APAP 5/325MG 1 EACH TABLET PO PRN (16:22)
--- NOTE | 2018-04-27 18:17 | NUR ---
VANCO LEVEL 21. DID NOT ADMINISTER VANCOMYCIN.
--- NOTE | 2018-04-27 19:30 | NUR ---
MS/RN OPENING NOTES PT RESTING COMFORTABLY IN BED. A/OX3. ON ROOM AIR, BREATHING EVEN AND UNLABORED. DENIES SOB. PAIN TO RLE 5/10 AT THIS TIME. RECENTLY RECEIVED PRN PAIN MEDS. MIDLINE TO RAC PATENT AND INTACT. PT FOR SURGICAL DEBRIDEMENT AND ALLOGRAFT IN AM. CONSENT SIGNED, PT AWARE, NPO POST MIDNIGHT. BREATHING EVEN AND UNLABORED. HOB ELEVATED. SIDE RAILS UPX2. WILL CONTINUE TO MONITOR
--- NOTE | 2018-04-27 19:31 | NUR ---
MS RN CLOSING NOTES PATIENT IS IN STABLE CONDITION. IN NO APPARENT DISTRESS. BEDSIDE RAILS ARE UPX2. BED IS LOCKED AND LOWERED. CALL LIGHT IS WITHIN REACH. IV LINE IS INTACT AND PATENT. ALL NEEDS WERE MET. WILL ENDORSE CARE TO STEM DRYER MAINTAINER NURSE FOR [facility]LL[facility].
[2018-04-27 20:00] VITALS: BP 124/74
[2018-04-27] MEDS: ENOXAPARIN SODIUM 40 MG/0.4 ML DISP.SYRIN SQ SCH (21:00)
[2018-04-27] MEDS: ZOLPIDEM TARTRATE 5 MG TABLET PO PRN (21:04)
[2018-04-27] MEDS: GABAPENTIN 300 MG CAPSULE PO SCH (21:04)
[2018-04-27] MEDS: VANCOMYCIN 1 GM in IV D5W 250 ML IV SCH (21:04)
--- NOTE | 2018-04-27 21:15 | NUR ---
VANCO TROUGH 21. VERIFIED WITH DIRECTOR TECHNICAL PHARMACY WHETHER OR NOT TO GIVE SCHEDULED VANCO. REVIEWED PT'S CHART TOGETHER. VANCO ADJUSTED POST VANCO TROUGH. PER DIRECTOR TECHNICAL PHARMACY LILIBETH, OKAY TO GIVE SCHEDULED 1G VANCO
[2018-04-28] MEDS: HYDROMORPHONE INJ 2 MG/ML DISP.SYRIN IV PRN ×4 (04:08→21:03)
[2018-04-28] MEDS: PIPERACILLIN /TAZOBACTAM 3.375 G in IV D5W 50 ML IV SCH ×4 (05:41→23:36)
[2018-04-28] MEDS: CEPHALEXIN MONOHYDRATE 500 MG CAPSULE PO SCH ×4 (06:00→23:38)
[2018-04-28 06:28] LABS: BASOPHILS % (AUTO) 0.5 % (0.0-2.0); HEMATOCRIT 31 % (33-45); HEMOGLOBIN 10.6 g/dL (11.5-14.8); LYMPHOCYTES # (AUTO) 1.3 /CMM (0.8-4.8); LYMPHOCYTES % (AUTO) 20.1 % (20.0-44.0); MEAN CORPUSCULAR HGB CONC 34 g/dl (31.0-36.0); MEAN CORPUSCULAR VOLUME 91 fL (82-100); MONOCYTES # (AUTO) 0.5 /CMM (0.1-1.30); MONOCYTES % (AUTO) 7.6 % (2.0-12.0); NEUTROPHILS # (AUTO) 4.3 /CMM (1.8-8.9); NEUTROPHILS % (AUTO) 68.8 % (43.0-81.0); PLATELET COUNT (AUTO) 187 /CMM (150-450); RED BLOOD CELL COUNT(AUTO) 3.42 MIL/uL (4.0-5.2); WHITE BLOOD COUNT (AUTO) 6.2 K/uL (4.3-11.0)
[2018-04-28 06:43] LABS: CREATININE 1.4 mg/dL (0.6-1.3); POTASSIUM 3.3 mmol/L (3.5-5.1)
[2018-04-28] MEDS ORDERED: ANESTHESIA TRAY IN PYXIS 1 EA TRAY MC ONE (07:02)
[2018-04-28] MEDS ORDERED: MINERAL OIL 10 ML VIAL MC ONE (07:03)
[2018-04-28] MEDS ORDERED: BUPIVACAINE 0.5 % PF 150 MG/30 ML VIAL ONE (07:03)
[2018-04-28] MEDS ORDERED: LIDOCAINE HCL/PF 1% 30 ML SDV ONE (07:03)
[2018-04-28] MEDS ORDERED: FENTANYL PF 100MCG/2ML AMPUL ONE (07:06)
[2018-04-28] MEDS ORDERED: MIDAZOLAM HCL 2 MG/2ML VIAL ONE (07:06)
[2018-04-28] MEDS ORDERED: FAMOTIDINE/PF INJ 20 MG/2 ML VIAL IV ONE (07:07)
[2018-04-28] MEDS ORDERED: METOCLOPRAMIDE HCL 10 MG/2 ML VIAL ONE (07:07)
--- NOTE | 2018-04-28 07:10 | NUR ---
RN OPENING NOTES PATIENT WAS PICKED UP FOR SURGERY AT 0700. Addendum: 04/28/18 at 0943 by NADEEM SNIDER PICKED UP AT 0710
[2018-04-28] MEDS ORDERED: BUPIVACAINE MPF 0.5% W/EPI INJ 30 ML VIAL ONE (07:14)
[2018-04-28] MEDS ORDERED: SEVOFLURANE 250 ML BOTTLE IH ONE (07:14)
--- NOTE | 2018-04-28 07:35 | NUR ---
MS/RN NOTES PT TAKEN DOWN BY SX STAFF TO OR IN STABLE CONDITION AT 0710. NO SIGNIFICANT CHANGES OVERNIGHT. A/OX3. ON ROOM AIR, BREATHING EVEN AND UNLABORED. DENIES SOB. MIDLINE TO RAC PATENT AND INTACT. PAIN MANAGED WITH PRN MEDS. KEPT NPO POST MIDNIGHT FOR SURGICAL DEBRIDEMENT AND ALLOGRAFT THIS AM. KEPT COMFORTABLE DURING SHIFT. ALL NEEDS MET. BREATHING EVEN AND UNLABORED. ENDORSED TO DAY SHIFT RN COLLINS.
[2018-04-28] MEDS ORDERED: BACITRACIN 50000 UNITS/VIAL ONE ×2 (07:41→08:17)
[2018-04-28] MEDS: FLUOXETINE HCL 20 MG CAPSULE PO SCH (09:00)
[2018-04-28] MEDS: MULTIVIT W/MINERALS 1 TAB TABLET PO SCH (09:00)
[2018-04-28] MEDS: FOLIC ACID 1 MG TABLET PO SCH (09:00)
[2018-04-28] MEDS: CHOLECALCIFEROL 1,000 UNIT TABLET (VIT D3) PO SCH (09:00)
[2018-04-28] MEDS: OXYBUTYNIN CHLORIDE 5 MG TABLET PO SCH ×2 (09:00→16:36)
[2018-04-28] MEDS: FERROUS SULFATE (325 MG) 325 MG/TAB TABLET PO SCH ×3 (09:00→16:36)
[2018-04-28 09:39] VITALS: BP 121/70
--- NOTE | 2018-04-28 09:41 | NUR ---
RN NOTES PATIENT CAME BACK FROM SURGERY. VITAL SIGNS STABLE. A LITTLE SEDATED BUT AROUSABLE TO NAME AND TOUCH. WILL MONIOTR ACCORDINGLY.
[2018-04-28] MEDS: PANTOPRAZOLE 40 MG VIAL IV SCH (09:50)
[2018-04-28] MEDS: VANCOMYCIN 1 GM in IV D5W 250 ML IV SCH ×3 (09:50→20:01)
[2018-04-28] MEDS: DAKINS QUARTER STRENGTH (0.125%) 480 ML BOTTLE TOP SCH (09:51)
[2018-04-28] MEDS: MICONAZOLE NITRATE 2% CREAM 1 EA TUBE TP SCH ×2 (09:52→16:38)
[2018-04-28] MEDS: NICOTINE PATCH (14MG) 14 MG PATCH.TD24 TD SCH (09:55)
--- NOTE | 2018-04-28 10:00 | NUR ---
RN NOTES AM PO MEDICATIONS WAS HELD DUE TO PATIENT TOO SEDATED TOO TAKE THEM. PATIENT VS STABLE AND AROUSABLE TO NAME AND TOUCH.
[2018-04-28 10:30] VITALS: BP 130/78
[2018-04-28] MEDS ORDERED: POTASSIUM CHLORIDE 20 MEQ TAB.PRT.SR PO SCH (11:30)
[2018-04-28] MEDS: NYSTATIN TOP POWDER 15 GM BOTTLE TP SCH ×2 (12:31→22:28)
[2018-04-28] MEDS: LORAZEPAM 0.5 MG TABLET PO PRN ×2 (12:52→23:37)
[2018-04-28] MEDS: LOPERAMIDE HCL (2 MG CAP) 2 MG CAPSULE PO PRN ×2 (13:53→20:03)
[2018-04-28] MEDS: HYDROCODONE/APAP 5/325MG 1 EACH TABLET PO PRN ×2 (15:09→19:07)
[2018-04-28 16:00] VITALS: BP 165/90
[2018-04-28] MEDS ORDERED: LACTOBACILLUS RHAMNOSUS GG 1 EACH CAP.SPRINK PO SCH (17:00)
--- NOTE | 2018-04-28 19:15 | NUR ---
RN CLOSING NOTES PATIENT IN STABLE CONDITION. NO SIGNIFICANT CHANGE IN PATIENT'S CONDITION. ALL NEEDS ATTENDED AND PROVIDED. ALL DUE MEDICATIONS GIVEN ORDERED. KEPT PATIENT SAFE AND COMFORTABLE. BED IN LOW/LOCKED POSITION, SIDERAILS UPX2, SEMIFOWLERS, CALL LIGHT IN REACH. ENDORSED TO NIGHT RN FOR COLLINS.
--- NOTE | 2018-04-28 19:45 | NUR ---
RN OPENING NOTES RECEIVED REPORT FROM DAYSHIFT RN [place]. FOUND Pt AWAKE, RESTING IN BED WATCHING TV. NO S/S OF ACUTE DISTRESS OR SOB NOTED. Pt IS A/OX4, VERBAL AND ABLE TO MAKE NEEDS KNOWN. SAFETY MEASURES IN PLACE. BED LOW, LOCKED, HOB ELEVATED, SIDE RAILS UP, CALL LIGHT AND BEDSIDE TABLE WITHIN REACH. WILL CONTINUE TO MONITOR Pt's CONDITION AND SAFETY THROUGHOUT THE NIGHT.
[2018-04-28 20:00] VITALS: BP 125/74
[2018-04-28] MEDS: ENOXAPARIN SODIUM 40 MG/0.4 ML DISP.SYRIN SQ SCH (20:03)
[2018-04-28] MEDS: GABAPENTIN 300 MG CAPSULE PO SCH (20:03)
--- NOTE | 2018-04-28 20:40 | NUR ---
rn notes per pt request wanted to get her neurontin earlier to help with her leg pain. pt wanted to get some rest and did not want to be constantly disturbed every hour for medication.
[2018-04-28] MEDS: ZOLPIDEM TARTRATE 5 MG TABLET PO PRN (22:43)
[2018-04-29] MEDS: HYDROMORPHONE INJ 2 MG/ML DISP.SYRIN IV PRN ×5 (01:30→20:23)
[2018-04-29] MEDS: PIPERACILLIN /TAZOBACTAM 3.375 G in IV D5W 50 ML IV SCH ×3 (06:33→18:35)
[2018-04-29] MEDS: CEPHALEXIN MONOHYDRATE 500 MG CAPSULE PO SCH ×3 (06:33→18:35)
--- NOTE | 2018-04-29 06:37 | NUR ---
RN CLOSING NOTES NO SIGNIFICANT CHANGES IN Pt's CONDITION. Pt REMAINS STABLE PER BASELINE. Pt IS RESTING COMFORTABLY IN BED. NO S/S OF ACUTE DISTRESS OR SOB NOTED DURING THE NIGHT. RESPIRATIONS EVEN AND UNLABORED. ALL NEEDS MET AND ATTENDED TO THROUGHOUT THE SHIFT. SAFETY MEASURES IN PLACE. BED LOW, LOCKED, HOB ELEVATED, SIDE RAILS UP, CALL LIGHT AND BEDSIDE TABLE WITHIN REACH. WILL ENDORSE TO DAYSHIFT RN FOR Pt's COLLINS.
[2018-04-29 07:01] LABS: BASOPHILS % (AUTO) 0.8 % (0.0-2.0); EOSINOPHILS % (AUTO) 3.3 % (0.0-6.0); HEMATOCRIT 29 % (33-45); HEMOGLOBIN 9.8 g/dL (11.5-14.8); LYMPHOCYTES # (AUTO) 1.3 /CMM (0.8-4.8); LYMPHOCYTES % (AUTO) 26.6 % (20.0-44.0); MEAN CORPUSCULAR HGB CONC 34 g/dl (31.0-36.0); MEAN CORPUSCULAR VOLUME 92 fL (82-100); MONOCYTES # (AUTO) 0.5 /CMM (0.1-1.30); NEUTROPHILS % (AUTO) 59.3 % (43.0-81.0); PLATELET COUNT (AUTO) 182 /CMM (150-450); RED BLOOD CELL COUNT(AUTO) 3.16 MIL/uL (4.0-5.2)
[2018-04-29 07:14] LABS: ALBUMIN 2.2 g/dL (3.4-5.0); BILIRUBIN,TOTAL 0.4 mg/dL (0.2-1.0); CALCIUM, SERUM 7.4 mg/dL (8.5-10.1); CREATININE 1.1 mg/dL (0.6-1.3); TOTAL PROTEIN, SERUM 6.5 g/dL (6.4-8.2)
--- NOTE | 2018-04-29 07:15 | NUR ---
MS/RN OPENING NOTE THE PATIENT ALERT AND ORIENTED X4. IN ROOM AIR AND DENIES SOB. RESPIRATION REGULAR AND UNLABORED. DENIES PAIN. THE PATIENT IN NO APPARENT DISTRESS. BEL MIDLINE G 18 PATENT AND SALINE LOCKED. BED LOW AND LOCKED. SIDE RAILS UP X3. CALL LIGHT WITHIN REACH. WILL CONTINUE TO MONITOR.
[2018-04-29 08:00] VITALS: BP 138/76
[2018-04-29] MEDS: LOPERAMIDE HCL (2 MG CAP) 2 MG CAPSULE PO PRN ×2 (08:00→16:18)
[2018-04-29] MEDS: LORAZEPAM 0.5 MG TABLET PO PRN ×2 (08:01→16:38)
[2018-04-29] MEDS: FOLIC ACID 1 MG TABLET PO SCH (08:17)
[2018-04-29] MEDS: OXYBUTYNIN CHLORIDE 5 MG TABLET PO SCH ×2 (08:17→16:15)
[2018-04-29] MEDS: MULTIVIT W/MINERALS 1 TAB TABLET PO SCH (08:17)
[2018-04-29] MEDS: FERROUS SULFATE (325 MG) 325 MG/TAB TABLET PO SCH ×3 (08:17→16:15)
[2018-04-29] MEDS: CHOLECALCIFEROL 1,000 UNIT TABLET (VIT D3) PO SCH (08:17)
[2018-04-29] MEDS: PANTOPRAZOLE 40 MG VIAL IV SCH (08:18)
[2018-04-29] MEDS: FLUOXETINE HCL 20 MG CAPSULE PO SCH (08:18)
[2018-04-29] MEDS: VANCOMYCIN 1 GM in IV D5W 250 ML IV SCH (08:28)
[2018-04-29] MEDS: NICOTINE PATCH (14MG) 14 MG PATCH.TD24 TD SCH (08:30)
[2018-04-29] MEDS: DAKINS QUARTER STRENGTH (0.125%) 480 ML BOTTLE TOP SCH (09:32)
[2018-04-29] MEDS: MICONAZOLE NITRATE 2% CREAM 1 EA TUBE TP SCH ×2 (09:32→18:36)
[2018-04-29] MEDS: POTASSIUM CHLORIDE 20 MEQ TAB.PRT.SR PO SCH ×2 (10:31→11:00)
[2018-04-29] MEDS: NYSTATIN TOP POWDER 15 GM BOTTLE TP SCH (12:06)
--- NOTE | 2018-04-29 12:09 | NUR ---
MS/RN NOTE K DUR 20 MEQ DUE AT 1100 WAS NOT ADMINISTERED DUE TO WAS LATE TO REMOVE FROM OMNICELL, SO PER DR CRAWFORD CANCELED 1100 KDUR AND PLACED NEW ORDER X1. NOTED AND CARRIED OUT.
[2018-04-29] MEDS ORDERED: POTASSIUM CHLORIDE 20 MEQ TAB.PRT.SR PO ONE (12:30)
[2018-04-29] MEDS ORDERED: RXVAN XX (12:36)
[2018-04-29 16:00] VITALS: BP 133/84
[2018-04-29 18:06] VITALS: BP 133/84
[2018-04-29] MEDS: HYDROCODONE/APAP 5/325MG 1 EACH TABLET PO PRN (19:50)
[2018-04-29 20:00] VITALS: BP 140/93
--- NOTE | 2018-04-29 20:00 | NUR ---
MS RN NOTES RECEIVED PT AWAKE, A/O X 4. NOT IN ANY DISTRESS. NO SOB NOTED. DENIES ANY PAIN OR DISCOMFORT AT THIS TIME. WITH BEL MIDLINE PATENT & INTACT. WITH DRESSING @ RLE C/D/I. CALL LIGHT WITHIN REACH. BED IN LOWEST POSITION. SR UP X 2 FOR SAFETY. PT FOR D/C AT [facility]. REPORT GIVEN TO HIWOT BY DAY SHIFT RN. EXIT CARE DONE. DISCHARGE INSTRUCTIONS PROVIDED. PT UNDERSTOOD IT WELL. MED RECON DONE BY AM RN. WILL CONTINUE TO MONITOR.
--- NOTE | 2018-04-29 20:30 | NUR ---
MS RN NOTES AMBULANCE CAME IN AND PICKED UP PT. REPORT GIVEN TO AMBULANCE PERSONNEL FOR CONTINUITY OF CARE. BELONGINGS SENT WITH THE PT. VSS. AFEBRILE. PT LEFT THE FACILITY IN FAIR AND STABLE CONDITION.
[2018-04-29] MEDS ORDERED: VANCOMYCIN 1 GM in IV D5W 250 ML IV SCH (21:00)
== END 2018-04-29 20:30 | DRG 264 ==
LOC: ER 13:32 → MED 18:44 → MEDSG2 04-26 17:38
PROVIDERS: ADMIT Nurse Practitioner Acute Care; ATTEND Family Medicine
PROC: 05H533Z Insertion of Infusion Device into Right Subclavian Vein, Percutaneous Approach (ICD-10-PCS; 2018-04-26)
PROC: B546ZZA Ultrasonography of Right Subclavian Vein, Guidance (ICD-10-PCS; 2018-04-26)
PROC: 0HRKXK3 Replacement of Right Lower Leg Skin with Nonautologous Tissue Substitute, Full Thickness, External Approach (ICD-10-PCS; principal; 2018-04-28)
PROC: 0JBN0ZZ Excision of Right Lower Leg Subcutaneous Tissue and Fascia, Open Approach (ICD-10-PCS; 2018-04-28)
DX: I87.2 Venous insufficiency (chronic) (peripheral) (principal); L03.115 Cellulitis of right lower limb; F11.20 Opioid dependence, uncomplicated; Z68.43 Body mass index [BMI] 50.0-59.9, adult; E44.0 Moderate protein-calorie malnutrition; E86.0 Dehydration; G89.4 Chronic pain syndrome; J45.909 Unspecified asthma, uncomplicated; M19.90 Unspecified osteoarthritis, unspecified site; Z98.84 Bariatric surgery status; Z79.899 Other long term (current) drug therapy; I87.8 Other specified disorders of veins; E55.9 Vitamin D deficiency, unspecified; F32.9 Major depressive disorder, single episode, unspecified; F41.9 Anxiety disorder, unspecified; M79.2 Neuralgia and neuritis, unspecified; Z98.890 Other specified postprocedural states; F17.200 Nicotine dependence, unspecified, uncomplicated; E66.01 Morbid (severe) obesity due to excess calories; R74.8 Abnormal levels of other serum enzymes; D63.8 Anemia in other chronic diseases classified elsewhere; F29 Unspecified psychosis not due to a substance or known physiological condition; Z87.440 Personal history of urinary (tract) infections; L30.4 Erythema intertrigo; D25.9 Leiomyoma of uterus, unspecified
CPT/HCPCS: 36415; 36569; 71045-TC; 73590-TC; 76856-TC; 80048-TC; 80053-TC; 80061-TC; 80076-TC; 80202-TC; 82977-TC; 83605-TC; 83735-TC; 84100-TC; 84702-TC; 85025-TC; 85610-TC; 85652-TC; 85730-TC; 86140-TC; 87040-TC; 87070-TC; 87081-TC; 93970-TC; 97110-TC; 97116-TC; 97530-TC; A4217; A6253; A6402; A6403; C9113; G0378; J1170; J1650; J2250; J2405; J2543; J2704; J2765; J3010; J3370; J3475; J3490; J7030; J7050; J7060